=== PATIENT | male | born 1970 | race African-American/Black ===

== ENCOUNTER 2020-10-15 10:49 | Outpatient (REF) | payer OTHER, SELFPAY ==
[2020-10-15 12:00] LABS: MANUAL DIFF FLAG NO
[2020-10-15 12:07] LABS: Basophils Percent Auto 0.3 % (0-2); Eosinophils Absolute Auto 0.1 X10*3/uL (0.0-0.4); Eosinophils Percent Auto 3.8 % (0-4); Hematocrit 46.8 % (42-52); Hemoglobin 15.5 g/dl (14.0-18.0); Imm Gran Abs Auto 0.01 X10*3/uL (0.00-0.03); Imm Gran Pct Auto 0.3 % (0.0-0.4); Lymphocytes Absolute Auto 1.2 X10*3/uL (1.2-4.9); Lymphocytes Percent Auto 34.5 % (20-40); Mean Corpuscular HGB Conc 33.1 g/dl (31.0-36.0); Mean Corpuscular Hemoglobin 28.5 pg (27.0-33.0); Mean Platelet Volume 9.9 fL (9.4-12.4); Monocytes Absolute Auto 0.4 X10*3/uL (0.1-1.2); Monocytes Percent Auto 10.8 % (2-11); Neutrophils Absolute Auto 1.7 X10*3/uL (2.0-8.3); Neutrophils Percent Auto 50.3 % (45-73); Platelet Count 170 X10*3/uL (160-400); Red Blood Count 5.44 X10*6/uL (4.60-5.80); Red Cell Distribution Width 12.7 % (11.0-16.0); White Blood Count 3.4 X10*3/uL (4.8-10.8)
[2020-10-15 12:28] LABS: Glucose Urine UA NEG (NEG); Leukocyte Esterase Urine NEG (NEG); Nitrite Urine NEG (NEG); PH 5.5 (5.0-8.0); Specific Gravity - Urine >= 1.030 (1.005-1.025); Urine Blood NEG (NEG); Urine Ketones NEG (NEG); Urine Protein NEG (NEG-TRACE)
[2020-10-15 12:36] LABS: Alanine Aminotransferase 160 U/L (0-40); Albumin Level 4.8 g/dL (3.5-5.0); Alkaline Phosphatase 79 U/L (39-117); Anion Gap 14 (12-20); Aspartate Amino Transferase 72 U/L (5-37); Bilirubin Total 0.6 mg/dL (0.0-1.0); Blood Urea Nitrogen 16 mg/dL (9-16); Calcium 9.7 mg/dL (8.4-10.2); Carbon Dioxide 26 mmol/L (22-29); Chloride 107 mmol/L (96-108); Cholesterol 273 mg/dL; Estimated Glomerular Filt Rate > 60; Glucose Fasting 91 mg/dL (60-99); HDL Cholesterol 61 mg/dL; LDL Cholesterol Calculated 200 mg/dl; Sodium 143 mmol/L (135-145); Total Protein 8.3 g/dL (6.5-8.0); Triglycerides 64 mg/dL
[2020-10-15 12:40] LABS: Appearance Urine CLEAR; Color Urine YELLOW
[2020-10-15 12:53] LABS: Prostate Specific Antigen Scr 0.54 ng/mL (<0.05-4.0); TSH reflex Free T4 1.19 uIU/mL (0.32-4.0)
== END 2020-10-15 10:50 | disposition home or self-care (01) ==
LOC: HO.LAB 10:49
PROVIDERS: PCP Internal Medicine; Visit Provider Internal Medicine
DX: Z00.00 Encounter for general adult medical examination without abnormal findings (principal); Z12.5 Encounter for screening for malignant neoplasm of prostate; E66.9 Obesity, unspecified; R03.0 Elevated blood-pressure reading, without diagnosis of hypertension; R79.89 Other specified abnormal findings of blood chemistry
CPT/HCPCS: 36415; 80053; 80061; 81003; 84153; 84443; 85025

== ENCOUNTER → 2021-01-14 10:53 | Outpatient (BNVA) | payer OTHER, SELFPAY | PROVIDERS: PCP Internal Medicine; Referring Provider Internal Medicine; Visit Provider Physician Assistant | DX: Z12.11 Encounter for screening for malignant neoplasm of colon (principal) | CPT/HCPCS: 99202 ==

== ENCOUNTER 2021-01-22 11:59 | Day surgery (SDC) | payer OTHER, SELFPAY ==
[2021-01-22 12:10] VITALS: BMI 32.7
--- NOTE | 2021-01-22 13:14 | HO.ANESPROP2 ---
[facility] Active Problems Active Problems: All Active Problems (Updated 01/14/21 @ 11:09 by Angela Leigh PA-C) Anxiety (Acute) Colon cancer screening (Acute) Elevated LFTs (Acute) Obesity (BMI 30-39.9) (Acute) Elevated blood pressure reading (Acute) Past Medical History Medical History Anxiety Colon cancer screening Elevated blood pressure reading Elevated LFTs Obesity (BMI 30-39.9) Family History Family History Mother Hypertension Surgical History Surgical History History of trabeculectomy (~08/24/19) Hx of lumbar discectomy (~2000) Status post glaucoma surgery (~05/02/20) Social History Social History Household Members Other:: Alcohol intake: current Alcohol intake frequency: does not drink Patient Tobacco Use Status: Never used Tobacco Use of substances other than those prescribed or required for medical reasons: No Are you DNR?: No Advance Directives: No Advance Directives Information Provided: Yes Recently lost weight without trying: Yes How much weight loss: 24-33 pounds Nutrition Risks: No Nutritional Risk Current occupational status: retired Meds Allergies Allergy/AdvReac Type Severity Reaction Status Date / Time No Known Allergies Allergy Verified 01/14/21 11:01 Home Medications Medication Instructions Recorded Confirmed Last Taken Type acetazolamide 250 mg tablet mg PO 01/14/21 01/14/21 Unknown History dorzolamide 2 % eye drops drp OPHTHALMIC (EYE) 01/14/21 01/14/21 Unknown History methazolamide 25 mg tablet 50 mg PO BID 01/14/21 01/14/21 Unknown History prednisolone acetate 1 % eye drp OPHTHALMIC (EYE) 01/14/21 01/14/21 Unknown History drops,suspension Exam Exam Date and Time: January 22, 2021 1314 Height,Weight and Vital Signs: Height 5 ft 10 in Weight 103.419 kg Airway Mallampati Class: II TM Dist: >3cm Neck ROM: Full Heart: RRR Lungs: CTA Assessment and Plan Assessment Anesthesia Assessment: Anesthesia Plan Discussed and Chart Reviewed Final Anesthetic Review NPO: Yes ASA Class: II Final Preanesthetic Review: Meds/Allgs Chart Reviewed, Consent Obtained/Reviewed and Anes Risks/Benef Reviewed Patient Risk: Low Procedure Risk: Low Anesthetic Plan Anesthetic Plan: MAC: Disposition: Standard PACU
[2021-01-22] MEDS: Lactated Ringers 1,000 ML 50 ML IVCONT (13:27)
--- NOTE | 2021-01-22 15:07 | MHC.SHP ---
Pre-Procedural Eval Section A Date of Service: 01/22/21 The patient is an INPATIENT: No Changes since office visit: Yes Patient answered all questions; No Cold of Flu in the past 2 weeks, No New Medical Problems and No Changes in Medication The History & Physical has been completed within 30 days and I have reviewed it.: Yes Section B Chief Complaint: Screening Allergies: Allergies Allergy/AdvReac Type Severity Reaction Status Date / Time No Known Allergies Allergy Verified 01/14/21 11:01 Plan I have reviewed the history and physical and performed a pertinent physical examination on my patient. No changes have occurred unless specified.
--- NOTE | 2021-01-22 15:10 | PM.OP ---
Brief Operative Note Date of Service: 01/22/21 Pre-op diagnosis: Colon cancer screening Post-op diagnosis: other ( colon polyps, hemorrhoids) Procedure: COLONOSCOPY TILL CECUM WITH SNARE POLYPECTOMY Consent: Indications for the procedure and potential complications of bleeding, perforation, reaction to medications and missed diagnosis were discussed with the patient and informed consent was obtained. Instrument: Olympus PCF H 190 L variable stiffness pediatric colonoscope Monitoring: Vital signs and clinical assessment, intermittent blood pressure monitoring, continuous EKG monitoring, Pulse oximetry and Carbon Dioxide monitoring were done throughout the procedure. Colon withdrawl time was 18 minutes. Procedure: The patient was placed in the left lateral decubitis position and pre-procedure medications were administered. After a digital rectal examination of the ano-rectum, the video colonoscope was inserted into the rectum and advanced through the colon to the cecum. The colonoscope was slowly withdrawn in a retrograde panoramic fashion and the colon mucosa was carefully examined including a retroflexed view of the rectum. Findings and interventions are described below. Procedure Difficulty: Without difficulty Findings: Terminal Ileum: Not evaluated Cecum: Normal Ascending Colon: Normal Transverse Colon: Normal Descending Colon: Normal Sigmoid Colon: A 9-10 mm sessile polyp removed with a cold snare. Rectum: Normal Ano-rectum: Moderate internal hemorrhoids Colon preparation: Good Impression and Post Procedure Diagnosis: Colonoscopy Findings: One medium sized polyp removed Moderate hemorrhoids on retroflexed exam. Plan: Await pathology results Patient to schedule a FU appointment in the GI Clinic with JERRY Fernandez for evaluation of elevated LFTs Repeat Colonoscopy interval based on path results - in 3 years if polyp is adenomatous and 10 years if polyps are hyperplastic. Above findings were reviewed with the patient and colon polyps and handout was given in the discharge area Surgeon: Jaqui Dickson MD Anesthesia: MAC (Shaila Blackwell CRNA) Was an Manager Collection used for this Procedure?: Yes Manager Collection: Maddy Mcclellan Estimated blood loss (mL): 0 Pathology: other (a: sigmoid polyp) Condition: stable Disposition: PACU
--- NOTE | 2021-01-22 15:16 | P.OP_ITS ---
Operative Note Operative Note Date of Service: 01/22/21 Narrative: Pre-op diagnosis: Colon cancer screening Post-op diagnosis: other ( colon polyps, hemorrhoids) Procedure: COLONOSCOPY TILL CECUM WITH SNARE POLYPECTOMY Consent: Indications for the procedure and potential complications of bleeding, perforation, reaction to medications and missed diagnosis were discussed with the patient and informed consent was obtained. Instrument: Olympus PCF H 190 L variable stiffness pediatric colonoscope Monitoring: Vital signs and clinical assessment, intermittent blood pressure monitoring, continuous EKG monitoring, Pulse oximetry and Carbon Dioxide monitoring were done throughout the procedure. Colon withdrawl time was 18 minutes. Procedure: The patient was placed in the left lateral decubitis position and pre-procedure medications were administered. After a digital rectal examination of the ano-rectum, the video colonoscope was inserted into the rectum and advanced through the colon to the cecum. The colonoscope was slowly withdrawn in a retrograde panoramic fashion and the colon mucosa was carefully examined including a retroflexed view of the rectum. Findings and interventions are described below. Procedure Difficulty: Without difficulty Findings: Terminal Ileum: Not evaluated Cecum: Normal Ascending Colon: Normal Transverse Colon: Normal Descending Colon: Normal Sigmoid Colon: A 9-10 mm sessile polyp removed with a cold snare. Rectum: Normal Ano-rectum: Moderate internal hemorrhoids Colon preparation: Good Impression and Post Procedure Diagnosis: Colonoscopy Findings: One medium sized polyp removed Moderate hemorrhoids on retroflexed exam. Plan: Await pathology results Patient to schedule a FU appointment in the GI Clinic with JERRY Fernandez for evaluation of elevated LFTs Repeat Colonoscopy interval based on path results - in 3 years if polyp is adenomatous and 10 years if polyps are hyperplastic. Above findings were reviewed with the patient and colon polyps and handout was given in the discharge area Surgeon: Jaqui Dickson MD Anesthesia: MAC (Shaila Blackwell CRNA) Was an Logistics Loss Prevention Manager used for this Procedure?: Yes Logistics Loss Prevention Manager: Maddy Mcclellan Estimated blood loss (mL): 0 Pathology: other (a: sigmoid polyp) Condition: stable Disposition: PACU
[2021-01-22 15:52] VITALS: BP 108/73; PULSE 85; RESP 14; TEMP 36.2; O2SAT 94
[2021-01-22 16:07] VITALS: BP 112/72; PULSE 69; RESP 16; O2SAT 94
[2021-01-22 16:30] VITALS: BP 124/90; PULSE 75; RESP 16; TEMP 36; O2SAT 98
== END 2021-01-22 16:36 | disposition home or self-care (01) ==
PROVIDERS: PCP Internal Medicine; Visit Provider Internal Medicine Gastroenterology
PROC: 0DJD8ZZ Inspection of Lower Intestinal Tract, Via Natural or Artificial Opening Endoscopic (ICD-10-PCS; CPT 45378; principal; 2021-01-22 13:10)
DX: Z12.11 Encounter for screening for malignant neoplasm of colon (principal); K63.5 Polyp of colon; K64.8 Other hemorrhoids; R03.0 Elevated blood-pressure reading, without diagnosis of hypertension; R74.8 Abnormal levels of other serum enzymes; F41.9 Anxiety disorder, unspecified; E66.9 Obesity, unspecified; Z79.899 Other long term (current) drug therapy
CPT/HCPCS: 45385; 88305

== ENCOUNTER 2022-06-03 09:37 | Outpatient (REF) | payer MEDICARE, SELFPAY ==
[2022-06-03 10:30] LABS: COVID-19 Test Negative (Negative); IDNOW Serial# 9DB6401D
== END 2022-06-03 09:38 | disposition home or self-care (01) ==
LOC: HO.LAB 09:37
PROVIDERS: Visit Provider Internal Medicine
DX: Z20.822 Contact with and (suspected) exposure to COVID-19 (principal)
CPT/HCPCS: 87635; C9803

== ENCOUNTER 2022-11-25 10:35 | Outpatient (AMB) | payer MEDICARE, SELFPAY ==
--- NOTE | 2022-11-25 10:42 | A.OFFPC_ITS ---
Vital Signs 11/25/22 10:43 Height 5 ft 10 in Weight 240 lb 6 oz BMI 34.5 BP 138/80 Blood Pressure Location Lt brachial Position Sitting Pulse 75 Pulse Source Pulse Oximeter Pulse Oximetry (%) 98 Oxygen Delivery Method Room Air Intake Visit Reasons: hyperlipidemia, elevated LFTs Intake Note: Patient is here to follow up on hyerlipidemia and elevated LFT's. 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: No Accompanied by: Self / Same As Patient Allergies No Known Allergies Allergy (Verified 06/10/23 13:10) Medication List - Last Reconciled 11/25/22 by Geovanny Suazo MD acetazolamide 250 mg PO BID dorzolamide 2% 1 drp ophthalmic (eye) TID doxepin 25 mg PO BEDTIME methazolamide 50 mg PO BID prednisolone acetate 1% 2 drps ophthalmic (eye) QID Tobacco use date assessed: 11/25/22 HPI hyperlipidemia, elevated LFTs HPI0 Details Patient comes in today for his follow up visit States that he feels okay Denies any headaches or dizziness Denies any chest pains, no SOB No nausea/vomiting, no abdominal pain No change in bowel habits noted He was not able to get his previously ordered labs done yet but states that he has not yet eaten anything this morning and can get to the lab after his visit today to get his labs done [facility] Medical History (Updated 06/10/23 @ 19:09 by Geovanny Suazo MD) Vitamin D deficiency Pure hypercholesterolemia Anxiety Colon cancer screening Elevated LFTs Obesity (BMI 30-39.9) Elevated blood pressure reading Surgical History (Updated 06/10/23 @ 13:17 by Geovanny Suazo MD) Hx of colonoscopy (~01/22/21) Hx of lumbar discectomy (~2000) Status post glaucoma surgery (~05/02/20) History of trabeculectomy (~08/24/19) Family History Mother Hypertension Social History Household Members Other:: Housing: Apartment Alcohol intake: current Alcohol intake frequency: holidays/special occasions only Patient Tobacco Use Status: Never used Tobacco e-Cigarette/Vaping Use: Never Used Second Hand Smoke Exposure: Yes service: No Current occupational status: retired and disabled Cognitive needs: No Hearing needs: No Vision needs: No Questionnaire PHQ-9 Over the last 2 weeks, how often have you been bothered by any of the following problems? 1. Little interest or pleasure in doing things: not at all 2. Feeling down, depressed, or hopeless: not at all 3. Trouble falling or staying asleep, or sleeping too much: not at all 4. Feeling tired or having little energy: not at all 5. Poor appetite or overeating: not at all 6. Feeling bad about yourself - or that you are a failure or have let yourself or your family down: not at all 7. Trouble concentrating on things, such as reading the newspaper or watching television: not at all 8. Moving or speaking so slowly that other people could have noticed. Or the opposite - being so fidgety or restless that you have been moving around a lot more than usual: not at all 9. Thoughts that you would be better off or of hurting yourself in some way: not at all Total score: 0 Depression Screening Interpretation: Negative [id number] - PHQ-9 Billing: Yes Source: Developed by Drs. Mio Cochran, Christelle Frank, Fransisco Spicer and colleagues, with an educational stephanie from [employer] Thrive Questionnaire Declines Thrive assessment: No Date Thrive assessed: 11/25/22 I am a: Patient What is your living situation today?: I have a steady place to live Within the past 12 months, did the food you bought not last and you didn't have the money to get more?: Never true Within the past 12 months, did you worry whether your food would run out before you got money to buy more?: Never true Do you have trouble paying for medicines?: No Do you have trouble getting transportation to medical appointments?: No Do you have trouble paying your heating and electricity bill?: No Do you have trouble taking care of your child, family member or friend?: No Do you have trouble with day-to-day activities such as bathing, preparing meals, shopping, managing finances, etc.?: No Are you currently unemployed and looking for a job?: No Are you interested in more education?: No Currently or been in a relationship where the following occur: no concerns reported AUDIT C Alcohol Use Questionnaire (AUDIT-C) 1. How often do you have a drink containing alcohol?: Monthly or less 2. How many drinks containing alcohol do you have on a typical day when you are drinking?: 1 or 2 3. How often do you have six or more drinks on one occasion?: Never Total Score: 1 Score Reviewed/Action Taken: Yes JODIE-7 AMB Questionnaire JODIE-7 Date JODIE - 7 assessed: 11/25/22 Feeling nervous, anxious, or on edge: 0 = Not at all Not being able to stop or control worryin = Not at all Worrying too much about different things: 0 = Not at all Trouble relaxin = Not at all Being so restless that it is hard to sit still: 0 = Not at all Becoming easily annoyed or irritable: 0 = Not at all Feeling afraid as if something awful might happen: 0 = Not at all Total JODIE-7 score (0-4 normal; 5-9 mild; 10-14 moderate; 15-21 severe): 0 Source: Developed by Drs. Mio Cochran, Christelle Frank, Fransisco Spicer and colleagues, with an educational stephanie from [employer] Review of Systems Const Denies chills, Denies fatigue, Denies fever(s) and Denies headache(s) Eyes Details: Patient is legally blind Reports blurry vision ENT Denies dysphagia, Denies dizziness, Denies otalgia, Denies headache(s), Denies neck pain, Denies odynophagia and Denies sore throat Card Denies chest pain, Denies palpitations and Denies dyspnea Resp Denies cough and Denies dyspnea GI Denies abdominal pain, Denies constipation, Denies dysphagia, Denies heartburn, Denies diarrhea, Denies nausea, Denies odynophagia and Denies vomiting Denies dysuria, Denies nocturia and Denies urinary frequency Musc Denies back pain and Denies neck pain Skin/Breast Denies rash Neuro Denies dizziness and Denies headache(s) Endo Denies fatigue and Denies palpitations Physical exam (Primary Care) Vital Signs: Last Vital Signs Pulse 75 11/25/22 10:43 BP 138/80 11/25/22 10:43 Pulse Ox 98 11/25/22 10:43 Oxygen Delivery Method Room Air 11/25/22 10:43 BMI result Body Mass Index 34.5 Tobacco/Smoking Status: Tobacco use Status Tobacco use date assessed 11/25/22 11/25/22 10:48 Patient Tobacco Use Status Never used Tobacco 11/25/22 10:48 e-Cigarette/Vaping Use Never Used 11/25/22 10:48 PHQ-9: PHQ-9 Score PHQ-9: Total score 0 11/25/22 11:03 Depression Screening Interpretation: Negative Thrive Assessment: Date of Thrive Assessment Date Thrive assessed 11/25/22 11/25/22 10:48 Currently or been in a relationship where the following occur: no concerns reported Const General: no acute distress and alert HENMT Ears: TM's normal bilaterally and EAC's normal Throat: Yes posterior oropharynx normal and Yes tonsils normal (no TP congestion) Neck Neck: Yes no lymphadenopathy and Yes supple Resp Auscultation: clear to auscultation bilaterally, no rales and no wheezes Cardio Rate: regular rate Rhythm: regular rhythm Heart sounds: no murmurs GI Palpation (GI): Soft to palpation, nontender and No hepatosplenomegaly present Skin General skin exam: no rashes or lesions noted Extrem General: Yes no clubbing, cyanosis or edema Assessment and Plan Assessment & Plan (1) Pure hypercholesterolemia: Code(s): E78.00 - Pure hypercholesterolemia, unspecified Plan: Reinforced low cholesterol diet Will have patient recheck his fasting lipids WENDY for follow up Will also have him recheck his labs and fasting lipids again in 6 months for follow up - is instructed to try getting these done BEFORE he comes in for his next appointment (2) Elevated blood pressure reading: Code(s): R03.0 - Elevated blood-pressure reading, without diagnosis of hypertension Plan: Patient is advised that his blood pressure reading today is slightly higher than normal again Reinforced low sodium diet - goal is systolic BP of 120 mm or less Patient is instructed to continue monitoring his blood pressure regularly (3) Elevated LFTs: Code(s): R79.89 - Other specified abnormal findings of blood chemistry Plan: Advised that this was most likely related to his weight and should improve with weight loss Will recheck his LFTs for follow up May need further work ups, including abdominal US, if his LFTs remain significantly elevated compared to his previous numbers (4) Glaucoma: Code(s): H40.9 - Unspecified glaucoma Qualifiers: Glaucoma type: unspecified Laterality: bilateral Qualified Code(s): H40.9 - Unspecified glaucoma Plan: Continue Dorzolamide 2% eye drops 1 drop into each eye BID, Combigan 0.2-0.5% 1 drop into each eye BID, Rocklatan 0.02-0.005% 1 drop into each eye QD, Pilocarpine HCl 1% 1 drop into the right eye QID and Prednisolone acetate 1% 2 drops into the left eye QD Used to take Methazolamide 50 mg BID and Acetazolamide 250 mg BID but these appear to have been discontinued by ophthalmology recently Follow up with ophthalmology at the [facility] in [place] as scheduled (5) Anxiety: Code(s): F41.9 - Anxiety disorder, unspecified Plan: Continue Doxepin 25 mg Q HS PRN (6) Obesity (BMI 30-39.9): Code(s): E66.9 - Obesity, unspecified Plan: Reinforced diet/exercise as tolerated/lose weight Plan To return in 6 months for his next annual physical examination Coding Level of Care Code Est Pt Level 4 (00114) Diagnoses Pure hypercholesterolemia E78.00 Elevated blood pressure reading R03.0 Elevated LFTs R79.89 Glaucoma of both eyes, unspecified glaucoma type H40.9 Glaucoma type: unspecified Laterality: bilateral Anxiety F41.9 Obesity (BMI 30-39.9) E66.9
[2022-11-25 10:43] VITALS: BP 138/80; PULSE 75; O2SAT 98; BMI 34.5
== END 2022-11-25 11:15 | disposition home or self-care (01) ==
LOC: HO.HMGH 10:35
PROVIDERS: PCP Internal Medicine; Visit Provider Internal Medicine
DX: E78.00 Pure hypercholesterolemia, unspecified (principal); R03.0 Elevated blood-pressure reading, without diagnosis of hypertension; R79.89 Other specified abnormal findings of blood chemistry; H40.9 Unspecified glaucoma; F41.9 Anxiety disorder, unspecified; E66.9 Obesity, unspecified
CPT/HCPCS: 99214

== ENCOUNTER 2022-11-25 11:20 | Outpatient (REF) | payer MEDICARE, SELFPAY ==
[2022-11-25 11:57] LABS: MANUAL DIFF FLAG NO
[2022-11-25 12:17] LABS: Basophils Percent Auto 0.6 % (0-2); Eosinophils Absolute Auto 0.3 X10*3/uL (0.0-0.4); Eosinophils Percent Auto 8.1 % (0-4); Hematocrit 44.9 % (42.0-52.0); Imm Gran Abs Auto 0.01 X10*3/uL (0.00-0.03); Imm Gran Pct Auto 0.3 % (0.0-0.4); Lymphocytes Absolute Auto 1.2 X10*3/uL (1.2-4.9); Lymphocytes Percent Auto 32.4 % (20-40); Mean Corpuscular HGB Conc 33.4 g/dl (31.0-36.0); Mean Corpuscular Hemoglobin 29.2 pg (27.0-33.0); Mean Corpuscular Volume 87.5 fL (80.0-98.0); Mean Platelet Volume 10.2 fL (9.4-12.4); Monocytes Absolute Auto 0.3 X10*3/uL (0.1-1.2); Monocytes Percent Auto 9.2 % (2-11); Neutrophils Absolute Auto 1.8 x10*3/uL (2.0-8.3); Neutrophils Percent Auto 49.4 % (45-73); Platelet Count 170 X10*3/uL (160-400); Red Blood Count 5.13 X10*6/uL (4.60-5.80); Red Cell Distribution Width 12.5 % (11.0-16.0); White Blood Count 3.6 X10*3/uL (4.8-10.8)
[2022-11-25 12:54] LABS: Appearance Urine Clear; Color Urine Dark Yellow; Glucose Urine UA Negative (Negative); Leukocyte Esterase Urine Negative (Negative); Nitrite Urine Negative (Negative); Specific Gravity - Urine >= 1.030 (1.005-1.025); UMIC TRIGGER UACC YES; Urine Blood Negative (Negative); Urine Ketones 15 mg/dL (Negative); Urine Protein 30 (1+) mg/dL (Neg-Trace)
[2022-11-25 12:59] LABS: Alanine Aminotransferase 53 U/L (0-40); Albumin Level 4.2 g/dL (3.5-5.0); Alkaline Phosphatase 66 U/L (39-117); Anion Gap 11 (12-20); Aspartate Amino Transferase 28 U/L (5-37); Bilirubin Total 0.8 mg/dL (0.0-1.0); Blood Urea Nitrogen 17 mg/dL (9-16); Calcium 9.4 mg/dL (8.4-10.2); Carbon Dioxide 26 mmol/L (22-29); Chloride 108 mmol/L (96-108); Cholesterol 225 mg/dL; Estimated Glomerular Filt Rate > 60; Glucose Fasting 86 mg/dL (60-99); HDL Cholesterol 46 mg/dL; LDL Cholesterol Calculated 166 mg/dl; Potassium 4.1 mmol/L (3.3-5.1); Prostate Specific Antigen Scr 0.56 ng/mL (<0.05-4.0); Sodium 141 mmol/L (135-145); TSH reflex Free T4 1.25 uIU/mL (0.32-4.0); Total Protein 7.2 g/dL (6.5-8.0); Triglycerides 67 mg/dL
[2022-11-25 13:11] LABS: Bacteria Urine None Seen (None Seen); RBC Urine 0-2 /HPF (0-2); WBC Urine 0-5 /HPF (0-5)
== END 2022-11-25 11:21 | disposition home or self-care (01) ==
LOC: HO.LAB 11:20
PROVIDERS: PCP Internal Medicine; Visit Provider Internal Medicine
DX: Z00.00 Encounter for general adult medical examination without abnormal findings (principal); Z12.5 Encounter for screening for malignant neoplasm of prostate; E78.00 Pure hypercholesterolemia, unspecified; E55.9 Vitamin D deficiency, unspecified; R79.89 Other specified abnormal findings of blood chemistry
CPT/HCPCS: 36415; 80053; 80061; 81001; 82306; 84153; 84443; 85025

== ENCOUNTER 2023-06-10 12:43 | Outpatient (AMB) | payer MEDICARE, SELFPAY ==
[2023-06-10 12:57] VITALS: BP 120/78; PULSE 68; O2SAT 99; BMI 35.2
--- NOTE | 2023-06-10 12:57 | A.OFFPC_ITS ---
Vital Signs 06/10/23 12:57 Height 5 ft 10 in Weight 245 lb 2 oz BMI 35.2 BP 120/78 Blood Pressure Location Lt brachial Position Sitting Pulse 68 Pulse Source Pulse Oximeter Pulse Oximetry (%) 99 Oxygen Delivery Method Room Air Intake Visit Reasons: Annual Exam Announcer Required: No Accompanied by: Self / Same As Patient Allergies No Known Allergies Allergy (Verified 06/10/23 13:10) Medication List - Last Reconciled 06/10/23 by Geovanny Suazo MD brimonidine-timolol 0.2-0.5 % (Combigan) 1 drp ophthalmic (eye) BID cholecalciferol (vitamin D3) 50 mcg PO DAILY 90 days dorzolamide 2% 1 drp ophthalmic (eye) BID doxepin 25 mg PO BEDTIME netarsudil-latanoprost 0.02-0.005 % (Rocklatan) 1 drp ophthalmic (eye) DAILY pilocarpine HCl 1% 1 drp ophthalmic (eye) QID prednisolone acetate 1% 2 drps ophthalmic (eye) .QD Tobacco use date assessed: 06/10/23 Dental Screening Dental Screen Date: 06/10/23 Did you have a dental visit in the last 12 months?: Yes Did you have a dental problem in the last 6 months where you did not have access to dental care?: No Was dental information given to patient?: Patient has dentist HPI Annual Exam HPI Details Patient comes in today for his annual physical examination States that he feels okay He denies any headaches or dizziness Denies any chest pains, no SOB No nausea/vomiting, no abdominal pain No change in bowel habits noted Denies any acute urinary symptoms Had his screening colonoscopy done with Dr. Dickson a couple of years ago on 01/22/2021 - recommend repeat colonoscopy in 10 years States that he was able to lose a lot of weight initially and was able to get himself down to a weight of around 209 pounds but states that he went down to [place] a few months ago to visit family there and afterwards, his weight started going back up and he is now unfortunately back to close to his previous weight but he has now decided to try to go back to what he was doing at the beginning of the year and start losing weight and eating healthy again [facility] Medical History (Updated 06/10/23 @ 19:09 by Geovanny Suazo MD) Vitamin D deficiency Pure hypercholesterolemia Anxiety Colon cancer screening Elevated LFTs Obesity (BMI 30-39.9) Elevated blood pressure reading Surgical History (Updated 06/10/23 @ 13:17 by Geovanny Suazo MD) Hx of colonoscopy (~01/22/21) Hx of lumbar discectomy (~2000) Status post glaucoma surgery (~05/02/20) History of trabeculectomy (~08/24/19) Family History Mother Hypertension Social History Household Members Other:: Housing: Apartment Alcohol intake: current Alcohol intake frequency: holidays/special occasions only Patient Tobacco Use Status: Never used Tobacco e-Cigarette/Vaping Use: Never Used Second Hand Smoke Exposure: Yes service: No Current occupational status: retired and disabled Cognitive needs: No Hearing needs: No Vision needs: No Questionnaire PHQ-9 Over the last 2 weeks, how often have you been bothered by any of the following problems? 1. Little interest or pleasure in doing things: not at all 2. Feeling down, depressed, or hopeless: not at all 3. Trouble falling or staying asleep, or sleeping too much: not at all 4. Feeling tired or having little energy: not at all 5. Poor appetite or overeating: not at all 6. Feeling bad about yourself - or that you are a failure or have let yourself or your family down: not at all 7. Trouble concentrating on things, such as reading the newspaper or watching television: not at all 8. Moving or speaking so slowly that other people could have noticed. Or the opposite - being so fidgety or restless that you have been moving around a lot more than usual: not at all 9. Thoughts that you would be better off or of hurting yourself in some way: not at all Total score: 0 Depression Screening Interpretation: Negative Depression Screening Done: Yes 62514 - PHQ-9 Billing: Yes Source: Developed by Drs. Mio Cochran, Christelle Frank, Fransisco Spicer and colleagues, with an educational stephanie from [employer]. Thrive Questionnaire Date Thrive assessed: 06/10/23 I am a: Patient What is your living situation today?: I have a steady place to live Within the past 12 months, did the food you bought not last and you didn't have the money to get more?: Never true Within the past 12 months, did you worry whether your food would run out before you got money to buy more?: Never true Do you have trouble paying for medicines?: No Do you have trouble getting transportation to medical appointments?: No Do you have trouble paying your heating and electricity bill?: No Do you have trouble taking care of your child, family member or friend?: No Do you have trouble with day-to-day activities such as bathing, preparing meals, shopping, managing finances, etc.?: No Are you currently unemployed and looking for a job?: No Are you interested in more education?: No Please select the resources that you would like help with: None Currently or been in a relationship where the following occur: no concerns reported AUDIT C Alcohol Use Questionnaire (AUDIT-C) 1. How often do you have a drink containing alcohol?: Monthly or less 2. How many drinks containing alcohol do you have on a typical day when you are drinking?: 1 or 2 3. How often do you have six or more drinks on one occasion?: Never Total Score: 1 Score Reviewed/Action Taken: Yes JODIE-7 AMB Questionnaire JODIE-7 Date JODIE - 7 assessed: 06/10/23 Feeling nervous, anxious, or on edge: 0 = Not at all Not being able to stop or control worryin = Not at all Worrying too much about different things: 0 = Not at all Trouble relaxin = Not at all Being so restless that it is hard to sit still: 0 = Not at all Becoming easily annoyed or irritable: 0 = Not at all Feeling afraid as if something awful might happen: 0 = Not at all Total JODIE-7 score (0-4 normal; 5-9 mild; 10-14 moderate; 15-21 severe): 0 Source: Developed by Drs. Mio Cochran, Christelle Frank, Fransisco Spicer and colleagues, with an educational stephanie from [employer]. Review of Systems Const Denies chills, Denies fatigue, Denies fever(s), Denies headache(s), Denies malaise and Denies weakness Eyes Denies blurry vision, Denies change in vision, Denies irritation and Denies itchy eyes ENT Denies dysphagia, Denies dizziness, Denies otalgia, Denies headache(s), Denies nasal congestion, Denies neck pain, Denies odynophagia and Denies sore throat Card Denies chest pain, Denies rapid heart rate, Denies irregular heart rhythm, Denies palpitations and Denies dyspnea Resp Denies chest congestion, Denies cough, Denies dyspnea and Denies wheezing GI Denies abdominal pain, Denies bloating, Denies constipation, Denies dysphagia, Denies heartburn, Denies diarrhea, Denies nausea, Denies odynophagia and Denies vomiting Denies hematuria, Denies difficulty urinating, Denies dysuria, Denies urinary frequency and Denies urinary urgency Musc Denies back pain, Denies arthralgias, Denies joint swelling, Denies muscle weakness and Denies neck pain Skin/Breast Denies change in pigmentation, Denies lesions, Denies rash and Denies unusual bruising Neuro Denies dizziness, Denies headache(s), Denies paresthesias and Denies weakness Endo Denies fatigue and Denies palpitations Aller/Immun Denies itchy eyes and Denies wheezing Physical exam (Primary Care) Vital Signs: Last Vital Signs Pulse 68 06/10/23 12:57 BP 120/78 06/10/23 12:57 Pulse Ox 99 06/10/23 12:57 Oxygen Delivery Method Room Air 06/10/23 12:57 BMI result Body Mass Index 35.2 Tobacco/Smoking Status: Tobacco use Status Tobacco use date assessed 06/10/23 06/10/23 13:05 Patient Tobacco Use Status Never used Tobacco 06/10/23 13:05 e-Cigarette/Vaping Use Never Used 06/10/23 13:05 PHQ-9: PHQ-9 Score PHQ-9: Total score 0 06/10/23 13:19 Depression Screening Interpretation: Negative Thrive Assessment: Date of Thrive Assessment Date Thrive assessed 06/10/23 06/10/23 13:05 Currently or been in a relationship where the following occur: no concerns reported Const General: no acute distress, alert and awake Orientation/consciousness: patient oriented x3 HENMT Head: Yes normocephalic and Yes atraumatic Ears: external ears normal, TM's normal bilaterally and EAC's normal General nose exam: No nasal discharge present Face and sinus: Yes normal facial exam and Yes sinuses nontender Teeth and gingiva: dentition normal Throat: Yes posterior oropharynx normal and Yes tonsils normal (no TP congestion) Eyes Eyelids: Yes eyelids normal Conjunctivae: conjunctivae normal Pupils: Equal, round and reactive pupils present EOM: EOMs intact bilaterally Neck Neck: Yes no lymphadenopathy and Yes supple Thyroid: Thyroid normal Resp Auscultation: clear to auscultation bilaterally, no rales and no wheezes Cardio Rate: regular rate Rhythm: regular rhythm Heart sounds: no murmurs GI Palpation (GI): Soft to palpation, nontender and No hepatosplenomegaly present Auscultation: normal bowel sounds General: Yes no CVA tenderness Back/Spine/Pelvis Back: no CVA tenderness Thoracic/Lumbar Spine: thoracic and lumbar spine normal to inspection Skin Lesions: no lesions Rashes: no rashes Neuro General: patient oriented x3, moves all extremities, no focal motor deficits and CN's II-XI intact bilaterally Cranial nerves: Yes Equal, round and reactive pupils present Cognition (Neuro): normal cognition Gait exam (Neuro): Normal gait present Extrem General: Yes no clubbing, cyanosis or edema Results Reviewed Results Reviewed: Laboratory Tests 11/25/22 11/25/22 11/25/22 11:48 11:56 11:56 WBC 3.6 L Hgb 15.0 Hct 44.9 Plt Count 170 Sodium 141 Potassium 4.1 Creatinine 0.98 Estimated GFR > 60 Fasting Glucose 86 Calcium 9.4 AST 28 ALT 53 H Triglycerides 67 Cholesterol 225 LDL Cholesterol, Calc 166 HDL Cholesterol 46 PSA Screen 0.56 25-OH Vitamin D Total 13.0 TSH 1.25 Urine pH 6.0 Ur Specific [place] >= 1.030 H Urine Protein 30 (1+) H Urine Glucose (UA) Negative Assessment and Plan Assessment & Plan (1) Annual physical exam: Code(s): Z00.00 - Encounter for general adult medical examination without abnormal findings Plan: Results of his labs done back in November 2022 reviewed and discussed with patient He is up-to-date with his cancer screening - had colonoscopy done on 01/22/2021 and is recommended to repeat his colonoscopy in 10 years (2030) (2) Pure hypercholesterolemia: Code(s): E78.00 - Pure hypercholesterolemia, unspecified Plan: Reinforced low cholesterol diet Will recheck his labs and fasting lipids WENDY for follow up - advised that his total and LDL cholesterol done back in November 2022 have improved from a couple of years ago (2020) but are still elevated and with his recent weight gain, I am concerned that his numbers have gone back up as well (3) Elevated LFTs: Code(s): R79.89 - Other specified abnormal findings of blood chemistry Plan: Advised that his LFTs were improving on his recent labs in November 2022 and that they were most likely related to his weight and should continue to improve with weight loss Will recheck his LFTs for follow up, especially since he has gained most of the weight that he lost earlier this year back recently (4) Vitamin D deficiency: Code(s): E55.9 - Vitamin D deficiency, unspecified Plan: He is advised that his Vitamin D level was very low on his previous labs in November 2022 Will start him on Vitamin D3 2000 units QD (5) Glaucoma: Code(s): H40.9 - Unspecified glaucoma Qualifiers: Glaucoma type: unspecified Laterality: bilateral Qualified Code(s): H40.9 - Unspecified glaucoma Plan: Continue Dorzolamide 2% eye drops 1 drop into each eye BID, Combigan 0.2-0.5% 1 drop into each eye BID, Rocklatan 0.02-0.005% 1 drop into each eye QD, Pilocarpine HCl 1% 1 drop into the right eye QID and Prednisolone acetate 1% 2 drops into the left eye QD Used to take Methazolamide 50 mg BID and Acetazolamide 250 mg BID but these have been discontinued by ophthalmology Follow up with ophthalmology at the [facility] in [place] as scheduled (6) Anxiety: Code(s): F41.9 - Anxiety disorder, unspecified Plan: Continue Doxepin 25 mg Q HS PRN (7) Obesity (BMI 30-39.9): Code(s): E66.9 - Obesity, unspecified Plan: Reinforced diet/exercise as tolerated/lose weight Plan Follow up in 6 months Orders: Orders Complete Blood Count Auto Diff Today E78.00 - Pure hypercholesterolemia, unspecified, R79.89 - Other specified abnormal findings of blood chemistry, Z00.00 - Encounter for general adult medical examination without abnormal findings UA CC w/rflx Micro + Cult Today R30.0 - Dysuria, Z00.00 - Encounter for general adult medical examination without abnormal findings Comprehensive [place]. Panel Fast Today E78.00 - Pure hypercholesterolemia, unspecified, R79.89 - Other specified abnormal findings of blood chemistry, Z00.00 - Encounter for general adult medical examination without abnormal findings Lipid Panel Today E78.00 - Pure hypercholesterolemia, unspecified, R79.89 - Other specified abnormal findings of blood chemistry, Z00.00 - Encounter for general adult medical examination without abnormal findings Medications: New cholecalciferol (vitamin D3) 50 mcg PO DAILY 90 caps 3RF 90 days E55.9 - Vitamin D deficiency, unspecified Coding Level of Care Code Est Pt Prev Care 40-64y(31148) Diagnoses Annual physical exam Z00.00 Pure hypercholesterolemia E78.00 Elevated LFTs R79.89 Vitamin D deficiency E55.9 Glaucoma of both eyes, unspecified glaucoma type H40.9 Glaucoma type: unspecified Laterality: bilateral Anxiety F41.9 Obesity (BMI 30-39.9) E66.9
== END 2023-06-10 13:59 | disposition home or self-care (01) ==
PROVIDERS: Visit Provider Internal Medicine
DX: Z00.00 Encounter for general adult medical examination without abnormal findings (principal); E78.00 Pure hypercholesterolemia, unspecified; R79.89 Other specified abnormal findings of blood chemistry; Z68.35 Body mass index [BMI] 35.0-35.9, adult; E66.9 Obesity, unspecified; E55.9 Vitamin D deficiency, unspecified; H40.9 Unspecified glaucoma; F41.9 Anxiety disorder, unspecified
CPT/HCPCS: 99396

== ENCOUNTER 2023-06-10 14:08 | Outpatient (REF) | payer MEDICARE, SELFPAY ==
[2023-06-10 14:21] LABS: MANUAL DIFF FLAG NO
[2023-06-10 14:35] LABS: Basophils Percent Auto 0.5 % (0-2); Eosinophils Absolute Auto 0.3 X10*3/uL (0.0-0.4); Eosinophils Percent Auto 6.8 % (0-4); Hematocrit 44.3 % (42.0-52.0); Imm Gran Abs Auto 0.01 X10*3/uL (0.00-0.03); Imm Gran Pct Auto 0.2 % (0.0-0.4); Lymphocytes Absolute Auto 1.4 X10*3/uL (1.2-4.9); Lymphocytes Percent Auto 33.3 % (20-40); Mean Corpuscular HGB Conc 33.9 g/dl (31.0-36.0); Mean Corpuscular Volume 85.7 fL (80.0-98.0); Mean Platelet Volume 9.7 fL (9.4-12.4); Monocytes Absolute Auto 0.4 X10*3/uL (0.1-1.2); Monocytes Percent Auto 9.2 % (2-11); Neutrophils Absolute Auto 2.1 x10*3/uL (2.0-8.3); Platelet Count 196 X10*3/uL (160-400); Red Blood Count 5.17 X10*6/uL (4.60-5.80); Red Cell Distribution Width 12.7 % (11.0-16.0); White Blood Count 4.1 X10*3/uL (4.8-10.8)
[2023-06-10 14:40] LABS: Appearance Urine Clear; Color Urine Yellow; Glucose Urine UA Negative (Negative); Leukocyte Esterase Urine Negative (Negative); Nitrite Urine Negative (Negative); Specific Gravity - Urine >= 1.030 (1.005-1.025); Urine Blood Negative (Negative); Urine Ketones Trace mg/dL (Negative); Urine Protein Negative (Neg-Trace)
[2023-06-10 15:10] LABS: Alanine Aminotransferase 104 U/L (0-40); Albumin Level 4.5 g/dL (3.5-5.0); Alkaline Phosphatase 71 U/L (39-117); Anion Gap 9 (12-20); Aspartate Amino Transferase 55 U/L (5-37); Bilirubin Total 0.5 mg/dL (0.0-1.0); Blood Urea Nitrogen 19 mg/dL (9-16); Calcium 9.3 mg/dL (8.4-10.2); Carbon Dioxide 27 mmol/L (22-29); Chloride 108 mmol/L (96-108); Cholesterol 245 mg/dL (<200); Estimated Glomerular Filt Rate > 60; Glucose Fasting 86 mg/dL (60-99); HDL Cholesterol 57 mg/dL (>40); LDL Cholesterol Calculated 173 mg/dL (<100); Sodium 140 mmol/L (135-145); Total Protein 8.1 g/dL (6.5-8.0); Triglycerides 79 mg/dL (<150)
== END 2023-06-10 14:09 | disposition home or self-care (01) ==
LOC: HO.LAB 14:08
PROVIDERS: PCP Internal Medicine; Visit Provider Internal Medicine
DX: Z00.00 Encounter for general adult medical examination without abnormal findings (principal); R30.0 Dysuria; E78.00 Pure hypercholesterolemia, unspecified; R79.89 Other specified abnormal findings of blood chemistry
CPT/HCPCS: 36415; 80053; 80061; 81003; 85025

== ENCOUNTER 2023-12-09 09:42 | Outpatient (AMB) | payer MEDICARE, MEDICAID, SELFPAY ==
[2023-12-09 09:45] VITALS: BP 126/80; PULSE 55; O2SAT 96; BMI 33.6
--- NOTE | 2023-12-09 09:45 | A.OFFPC_ITS ---
Vital Signs 12/09/23 09:45 Height 5 ft 10 in Weight 234 lb BMI 33.6 BP 126/80 Blood Pressure Location Lt brachial Position Sitting Pulse 55 Pulse Source Pulse Oximeter Pulse Oximetry (%) 96 Oxygen Delivery Method Room Air Intake Visit Reasons: hyperlipidemia, glaucoma Intake Note: Patient is here to follow up on hyperlipidemia, glaucoma Case Resolution Specialist Required: No Allergies No Known Allergies Allergy (Verified 12/09/23 10:14) Medication List - Last Reconciled 12/09/23 by Geovanny Suazo MD brimonidine-timolol 0.2-0.5 % (Combigan) 1 drp ophthalmic (eye) BID cholecalciferol (vitamin D3) 50 mcg PO DAILY 90 days dorzolamide 2% 1 drp ophthalmic (eye) BID doxepin 25 mg PO BEDTIME netarsudil-latanoprost 0.02-0.005 % (Rocklatan) 1 drp ophthalmic (eye) DAILY pilocarpine HCl 1% 1 drp ophthalmic (eye) QID prednisolone acetate 1% 2 drps ophthalmic (eye) .QD Tobacco use date assessed: 12/09/23 Dental Screening Dental Screen Date: 12/09/23 Did you have a dental visit in the last 12 months?: Yes Did you have a dental problem in the last 6 months where you did not have access to dental care?: No Was dental information given to patient?: Patient has dentist HPI hyperlipidemia, glaucoma HPI Details Patient comes in today for his follow up visit States that he currently feels okay States that he switched over to a vegetarian diet in July 2023 and has been a strict vegetarian since He has also been able to lose some weight since his last visit here in May 2023 He denies any headaches or dizziness Denies any chest pains, no SOB No nausea/vomiting, no abdominal pain No change in bowel habits noted PFSH Medical History Vitamin D deficiency Pure hypercholesterolemia Anxiety Colon cancer screening Elevated LFTs Obesity (BMI 30-39.9) Elevated blood pressure reading Surgical History Hx of colonoscopy (~01/22/21) Hx of lumbar discectomy (~2000) Status post glaucoma surgery (~05/02/20) History of trabeculectomy (~08/24/19) Family History Mother Hypertension Social History Household Members Other:: Housing: Apartment Alcohol intake: current Alcohol intake frequency: holidays/special occasions only Patient Tobacco Use Status: Never used Tobacco e-Cigarette/Vaping Use: Never Used Second Hand Smoke Exposure: Yes service: No Current occupational status: retired and disabled Cognitive needs: No Hearing needs: No Vision needs: No Questionnaire PHQ-9 Over the last 2 weeks, how often have you been bothered by any of the following problems? 1. Little interest or pleasure in doing things: not at all 2. Feeling down, depressed, or hopeless: not at all 3. Trouble falling or staying asleep, or sleeping too much: not at all 4. Feeling tired or having little energy: not at all 5. Poor appetite or overeating: not at all 6. Feeling bad about yourself - or that you are a failure or have let yourself or your family down: not at all 7. Trouble concentrating on things, such as reading the newspaper or watching television: not at all 8. Moving or speaking so slowly that other people could have noticed. Or the opposite - being so fidgety or restless that you have been moving around a lot more than usual: not at all 9. Thoughts that you would be better off or of hurting yourself in some way: not at all Total score: 0 Depression Screening Interpretation: Negative Depression Screening Done: Yes 02152 - PHQ-9 Billing: Yes Source: Developed by Drs. Mio Cochran, Christelle Frank, Fransisco Spicer and colleagues, with an educational stephanie from [employer]. Thrive Questionnaire Date Thrive assessed: 12/09/23 I am a: Patient What is your living situation today?: I have a steady place to live Within the past 12 months, did the food you bought not last and you didn't have the money to get more?: Never true Within the past 12 months, did you worry whether your food would run out before you got money to buy more?: Never true Do you have trouble paying for medicines?: No Do you have trouble getting transportation to medical appointments?: No Do you have trouble paying your heating and electricity bill?: No Do you have trouble taking care of your child, family member or friend?: No Do you have trouble with day-to-day activities such as bathing, preparing meals, shopping, managing finances, etc.?: No Are you currently unemployed and looking for a job?: No Are you interested in more education?: No Please select the resources that you would like help with: None Currently or been in a relationship where the following occur: no concerns reported THRIVE Score: 0 AUDIT C Alcohol Use Questionnaire (AUDIT-C) 1. How often do you have a drink containing alcohol?: Monthly or less 2. How many drinks containing alcohol do you have on a typical day when you are drinking?: 1 or 2 3. How often do you have six or more drinks on one occasion?: Never Total Score: 1 Score Reviewed/Action Taken: Yes JODIE-7 AMB Questionnaire JODIE-7 Date JODIE - 7 assessed: 12/09/23 Feeling nervous, anxious, or on edge: 0 = Not at all Not being able to stop or control worryin = Not at all Worrying too much about different things: 0 = Not at all Trouble relaxin = Not at all Being so restless that it is hard to sit still: 0 = Not at all Becoming easily annoyed or irritable: 0 = Not at all Feeling afraid as if something awful might happen: 0 = Not at all Total JODIE-7 score (0-4 normal; 5-9 mild; 10-14 moderate; 15-21 severe): 0 Source: Developed by Drs. Mio Cochran, Christelle Frank, Fransisco Spicer and colleagues, with an educational stephanie from [employer]. JODIE-7 Assessment Billing JODIE-7 Assessment Tool: JODIE-7 Assessment 00689 Review of Systems Const Denies chills, Denies fatigue, Denies fever(s) and Denies headache(s) ENT Denies dysphagia, Denies dizziness, Denies otalgia, Denies headache(s), Denies neck pain, Denies odynophagia and Denies sore throat Card Denies chest pain, Denies palpitations and Denies dyspnea Resp Denies cough and Denies dyspnea GI Denies abdominal pain, Denies constipation, Denies dysphagia, Denies heartburn, Denies diarrhea, Denies nausea, Denies odynophagia and Denies vomiting Denies dysuria, Denies nocturia and Denies urinary frequency Musc Denies back pain and Denies neck pain Skin/Breast Denies rash Neuro Denies dizziness and Denies headache(s) Psych Denies anxiety Endo Denies fatigue and Denies palpitations Physical exam (Primary Care) Vital Signs: Last Vital Signs Pulse 55 12/09/23 09:45 BP 126/80 12/09/23 09:45 Pulse Ox 96 12/09/23 09:45 Oxygen Delivery Method Room Air 12/09/23 09:45 BMI result Body Mass Index 33.6 Tobacco/Smoking Status: Tobacco use Status Tobacco use date assessed 12/09/23 12/09/23 09:46 Patient Tobacco Use Status Never used Tobacco 12/09/23 09:46 e-Cigarette/Vaping Use Never Used 12/09/23 09:46 Depression Screening Interpretation: Negative Thrive Assessment: Date of Thrive Assessment Date Thrive assessed 12/09/23 12/09/23 09:46 Currently or been in a relationship where the following occur: no concerns reported Const General: no acute distress and alert HENMT Throat: Yes posterior oropharynx normal and Yes tonsils normal (no TP congestion) Neck Neck: Yes no lymphadenopathy and Yes supple Thyroid: Thyroid normal Resp Auscultation: clear to auscultation bilaterally, no rales and no wheezes Cardio Rate: regular rate Rhythm: regular rhythm Heart sounds: no murmurs GI Palpation (GI): Soft to palpation and nontender Auscultation: normal bowel sounds General: Yes no CVA tenderness Back/Spine/Pelvis Back: no CVA tenderness Thoracic/Lumbar Spine: No lumbar spinal tenderness Skin Rashes: no rashes Extrem General: Yes no clubbing, cyanosis or edema Results Reviewed Results Reviewed: Laboratory Tests 06/10/23 06/10/23 14:19 14:25 WBC 4.1 L Hgb 15.0 Hct 44.3 Plt Count 196 Sodium 140 Potassium 4.0 Creatinine 0.96 Estimated GFR > 60 Fasting Glucose 86 Calcium 9.3 AST 55 H ALT 104 H Triglycerides 79 Cholesterol 245 H LDL Cholesterol, Calc 173 H HDL Cholesterol 57 Ur Specific [place] >= 1.030 H Urine Protein Negative Urine Glucose (UA) Negative Urine Blood Negative Urine Nitrite Negative Ur Leukocyte Esterase Negative Assessment and Plan Assessment & Plan (1) Pure hypercholesterolemia: Code(s): E78.00 - Pure hypercholesterolemia, unspecified Plan: Reinforced low cholesterol diet Will recheck his labs and fasting lipids WENDY for follow up - advised that his total and LDL cholesterol done back in May 2023 remain elevated and have increased slightly from his previous numbers Discussed that if he cannot get them down to normal / recommended range, we may have to consider pharmacotherapy Patient has switched over to a vegetarian diet in July 2023 and this will hopefully help with his cholesterol numbers Will have him recheck his labs again in 6 months before he returns for his annual physical examination (2) Elevated LFTs: Code(s): R79.89 - Other specified abnormal findings of blood chemistry Plan: He is advised that his LFTs have increased again on his recent labs in May 2023 - advised again that they are most likely related to his weight and should improve with weight loss Will recheck his LFTs WENDY for follow up (3) Vitamin D deficiency: Code(s): E55.9 - Vitamin D deficiency, unspecified Plan: Continue Vitamin D3 2000 units QD (4) Glaucoma: Code(s): H40.9 - Unspecified glaucoma Qualifiers: Glaucoma type: unspecified Laterality: bilateral Qualified Code(s): H40.9 - Unspecified glaucoma Plan: Continue Dorzolamide 2% eye drops 1 drop into each eye BID, Combigan 0.2-0.5% 1 drop into each eye BID, Rocklatan 0.02-0.005% 1 drop into each eye QD, Pilocarpine HCl 1% 1 drop into the right eye QID and Prednisolone acetate 1% 2 drops into the left eye QD Used to take Methazolamide 50 mg BID and Acetazolamide 250 mg BID but these have been discontinued by ophthalmology Follow up with ophthalmology at the [facility] in [place] as scheduled (5) Anxiety: Code(s): F41.9 - Anxiety disorder, unspecified Plan: Continue Doxepin 25 mg Q HS PRN (6) Obesity (BMI 30-39.9): Code(s): E66.9 - Obesity, unspecified Plan: Reinforced diet/exercise as tolerated/lose weight Plan To return in 6 months for his annual physical examination Orders: Orders Comprehensive [place]. Panel Fast Today E78.00 - Pure hypercholesterolemia, unspecified Lipid Panel Today E78.00 - Pure hypercholesterolemia, unspecified Complete Blood Count Auto Diff 6 Months D64.9 - Anemia, unspecified, Z00.00 - Encounter for general adult medical examination without abnormal findings Lipid Panel 6 Months E78.00 - Pure hypercholesterolemia, unspecified, Z00.00 - Encounter for general adult medical examination without abnormal findings TSH reflex Free T4 6 Months E78.00 - Pure hypercholesterolemia, unspecified, Z00.00 - Encounter for general adult medical examination without abnormal findings Comprehensive [place]. Panel Fast 6 Months E78.00 - Pure hypercholesterolemia, unspecified, Z00.00 - Encounter for general adult medical examination without abnormal findings UA CC w/rflx Micro + Cult 6 Months R30.0 - Dysuria, Z00.00 - Encounter for general adult medical examination without abnormal findings Vitamin D 25-OH Total 6 Months E55.9 - Vitamin D deficiency, unspecified, Z00.00 - Encounter for general adult medical examination without abnormal findings Prostate Specific Antigen Scr 6 Months Z00.00 - Encounter for general adult medical examination without abnormal findings Gamma Glutamyl Transpeptidase Today R79.89 - Other specified abnormal findings of blood chemistry Coding Level of Care Code Est Pt Level 4 (20806) Diagnoses Pure hypercholesterolemia E78.00 Elevated LFTs R79.89 Vitamin D deficiency E55.9 Glaucoma of both eyes, unspecified glaucoma type H40.9 Glaucoma type: unspecified Laterality: bilateral Anxiety F41.9 Obesity (BMI 30-39.9) E66.9 Additional Codes JODIE-7 Assessment Billing - JODIE-7 Assessment Tool: JODIE-7 Assessment 54236 ([id number])
== END 2023-12-09 10:32 | disposition home or self-care (01) ==
PROVIDERS: PCP Internal Medicine; Visit Provider Internal Medicine
DX: E78.00 Pure hypercholesterolemia, unspecified (principal); E66.9 Obesity, unspecified; Z68.33 Body mass index [BMI] 33.0-33.9, adult; R79.89 Other specified abnormal findings of blood chemistry; E55.9 Vitamin D deficiency, unspecified; H40.9 Unspecified glaucoma; F41.9 Anxiety disorder, unspecified
CPT/HCPCS: 99214

== ENCOUNTER 2023-12-09 10:40 | Outpatient (REF) | payer MEDICARE, MEDICAID, SELFPAY ==
[2023-12-09 12:13] LABS: Alanine Aminotransferase 55 U/L (0-40); Albumin Level 4.4 g/dL (3.5-5.0); Alkaline Phosphatase 57 U/L (39-117); Anion Gap 13 (12-20); Aspartate Amino Transferase 31 U/L (5-37); Bilirubin Total 0.7 mg/dL (0.0-1.0); Blood Urea Nitrogen 21 mg/dL (9-16); Calcium 9.6 mg/dL (8.4-10.2); Carbon Dioxide 25 mmol/L (22-29); Chloride 108 mmol/L (96-108); Cholesterol 203 mg/dL (<200); Estimated Glomerular Filt Rate > 60; Gamma Glutamyl Transpeptidase 107 U/L (11-51); Glucose Fasting 81 mg/dL (60-99); HDL Cholesterol 51 mg/dL (>40); LDL Cholesterol Calculated 140 mg/dL (<100); Potassium 4.2 mmol/L (3.3-5.1); Sodium 142 mmol/L (135-145); Total Protein 7.7 g/dL (6.5-8.0); Triglycerides 61 mg/dL (<150)
[2023-12-09 13:16] LABS: Appearance Urine Clear; Color Urine Dark Yellow; Glucose Urine UA Negative (Negative); Leukocyte Esterase Urine Negative (Negative); Nitrite Urine Negative (Negative); PH 5.5 (5.0-9.0); Specific Gravity - Urine >= 1.030 (1.005-1.025); Urine Blood Negative (Negative); Urine Ketones 15 mg/dL (Negative); Urine Protein Trace mg/dL (Neg-Trace)
== END 2023-12-09 10:41 | disposition home or self-care (01) ==
LOC: HO.LAB 10:40
PROVIDERS: PCP Internal Medicine; Visit Provider Internal Medicine
DX: Z00.00 Encounter for general adult medical examination without abnormal findings (principal); R79.89 Other specified abnormal findings of blood chemistry; E78.00 Pure hypercholesterolemia, unspecified; R30.0 Dysuria
CPT/HCPCS: 36415; 80053; 80061; 81003; 82977

== ENCOUNTER 2024-06-15 09:25 | Outpatient (AMB) | payer OTHER, SELFPAY ==
[2024-06-15 09:29] VITALS: BP 124/80; PULSE 48; O2SAT 98; BMI 36.4
--- NOTE | 2024-06-15 09:29 | MHC.PC.OV ---
Vital Signs 06/15/24 09:29 Height 5 ft 10 in Weight 253 lb 8 oz BMI 36.4 BP 124/80 Blood Pressure Location Lt brachial Position Sitting Pulse 48 L Pulse Source Pulse Oximeter Pulse Oximetry (%) 98 Oxygen Delivery Method Room Air Intake Visit Reasons: Annual exam Shoemaker Custom Required: No Accompanied by: Self / Same As Patient Allergies No Known Allergies Allergy (Verified 06/15/24 10:05) Medication List - Last Reconciled 06/15/24 by Geovanny Suazo MD brimonidine-timolol 0.2-0.5 % (Combigan) 1 drp ophthalmic (eye) BID cholecalciferol (vitamin D3) 50 mcg PO DAILY 90 days dorzolamide 2% 1 drp ophthalmic (eye) BID doxepin 25 mg PO BEDTIME netarsudil-latanoprost 0.02-0.005 % (Rocklatan) 1 drp ophthalmic (eye) DAILY pilocarpine HCl 1% 1 drp ophthalmic (eye) QID prednisolone acetate 1% 2 drps ophthalmic (eye) .QD Tobacco use date assessed: 06/15/24 Dental Screening Dental Screen Date: 06/15/24 Did you have a dental visit in the last 12 months?: Yes Did you have a dental problem in the last 6 months where you did not have access to dental care?: No Was dental information given to patient?: Patient has dentist HPI Annual exam HPI Details Patient comes in today for his annual physical examination States that he currently feels okay Relates that he switched over to a vegetarian diet in July 2023 and has been a strict vegetarian since He denies any headaches or dizziness Denies any chest pains, no SOB No nausea/vomiting, no abdominal pain No change in bowel habits noted He denies any acute urinary symptoms He was not able to get his follow up labs done prior to his appointment today He is up-to-date with his screening colonoscopy - does not need repeat colonoscopy until 2030 [facility] Medical History Vitamin D deficiency Pure hypercholesterolemia Anxiety Colon cancer screening Elevated LFTs Obesity (BMI 30-39.9) Elevated blood pressure reading Surgical History Hx of colonoscopy (~01/22/21) Hx of lumbar discectomy (~2000) Status post glaucoma surgery (~05/02/20) History of trabeculectomy (~08/24/19) Family History Mother Hypertension Social History Household Members Other:: Housing: Apartment Alcohol intake: current Alcohol intake frequency: holidays/special occasions only Patient Tobacco Use Status: Never used Tobacco e-Cigarette/Vaping Use: Never Used Second Hand Smoke Exposure: Yes service: No Current occupational status: retired and disabled Cognitive needs: No Hearing needs: No Vision needs: No Questionnaire PHQ-9 Over the last 2 weeks, how often have you been bothered by any of the following problems? 1. Little interest or pleasure in doing things: nearly every day 2. Feeling down, depressed, or hopeless: several days 3. Trouble falling or staying asleep, or sleeping too much: not at all 4. Feeling tired or having little energy: not at all 5. Poor appetite or overeating: not at all 6. Feeling bad about yourself - or that you are a failure or have let yourself or your family down: not at all 7. Trouble concentrating on things, such as reading the newspaper or watching television: not at all 8. Moving or speaking so slowly that other people could have noticed. Or the opposite - being so fidgety or restless that you have been moving around a lot more than usual: not at all 9. Thoughts that you would be better off or of hurting yourself in some way: not at all Total score: 4 Depression Screening Interpretation: Positive Depression Screening Follow-up: Follow-up Visit Requested Depression Screening Done: Yes 87436 - PHQ-9 Billing: Yes Source: Developed by Drs. Mio Cochran, Christelle Frank, Fransisco Spicer and colleagues, with an educational stephanie from [employer]. Thrive Questionnaire Date Thrive assessed: 06/15/24 I am a: Patient What is your living situation today?: I have a steady place to live Within the past 12 months, did the food you bought not last and you didn't have the money to get more?: I choose not to answer this question Within the past 12 months, did you worry whether your food would run out before you got money to buy more?: I choose not to answer this question Do you have trouble paying for medicines?: No Do you have trouble getting transportation to medical appointments?: I choose not to answer this question Do you have trouble paying your heating and electricity bill?: Yes Do you have trouble taking care of your child, family member or friend?: No Do you have trouble with day-to-day activities such as bathing, preparing meals, shopping, managing finances, etc.?: I choose not to answer this question Are you currently unemployed and looking for a job?: I choose not to answer this question Are you interested in more education?: I choose not to answer this question Please select the resources that you would like help with: Care for elder or disabled Currently or been in a relationship where the following occur: No concerns reported THRIVE Score: 1 AUDIT C Alcohol Use Questionnaire (AUDIT-C) 1. How often do you have a drink containing alcohol?: Monthly or less 2. How many drinks containing alcohol do you have on a typical day when you are drinking?: 1 or 2 3. How often do you have six or more drinks on one occasion?: Never Total Score: 1 Score Reviewed/Action Taken: Yes JODIE-7 AMB Questionnaire JODIE-7 Date JODIE - 7 assessed: 06/15/24 Feeling nervous, anxious, or on edge: 0 = Not at all Not being able to stop or control worryin = Several days Worrying too much about different things: 2 = More than half the days Trouble relaxin = More than half the days Being so restless that it is hard to sit still: 2 = More than half the days Becoming easily annoyed or irritable: 2 = More than half the days Feeling afraid as if something awful might happen: 0 = Not at all Total JODIE-7 score (0-4 normal; 5-9 mild; 10-14 moderate; 15-21 severe): 9 Source: Developed by Drs. Mio Cochran, Christelle Frank, Fransisco Spicer and colleagues, with an educational stephanie from [employer]. Review of Systems Const Denies chills, Denies fatigue, Denies fever(s) and Denies headache(s) Eyes Reports blurry vision (on and off), Denies change in vision, Denies irritation and Denies itchy eyes ENT Denies dysphagia, Denies dizziness, Denies otalgia, Denies headache(s), Denies neck pain, Denies odynophagia and Denies sore throat Card Denies chest pain, Denies palpitations and Denies dyspnea Resp Denies cough, Denies dyspnea and Denies wheezing GI Denies abdominal pain, Denies constipation, Denies dysphagia, Denies heartburn, Denies diarrhea, Denies nausea, Denies odynophagia and Denies vomiting Denies dysuria, Denies nocturia and Denies urinary frequency Musc Denies back pain and Denies neck pain Skin/Breast Denies rash Neuro Denies dizziness and Denies headache(s) Psych Denies anxiety Endo Denies fatigue and Denies palpitations Aller/Immun Denies itchy eyes and Denies wheezing Physical exam (Primary Care) Vital Signs: Last Vital Signs Pulse 48 L 06/15/24 09:29 BP 124/80 06/15/24 09:29 Pulse Ox 98 06/15/24 09:29 Oxygen Delivery Method Room Air 06/15/24 09:29 BMI result Body Mass Index 36.4 Tobacco/Smoking Status: Tobacco use Status Tobacco use date assessed 06/15/24 06/15/24 09:34 Patient Tobacco Use Status Never used Tobacco 06/15/24 09:34 e-Cigarette/Vaping Use Never Used 06/15/24 09:34 Depression Screening Interpretation: Positive Depression Screening Follow-up: Follow-up Visit Requested Thrive Assessment: Date of Thrive Assessment Date Thrive assessed 06/15/24 06/15/24 09:34 Currently or been in a relationship where the following occur: No concerns reported Const General: no acute distress, alert and awake Orientation/consciousness: patient oriented x3 HENMT Head: Yes normocephalic and Yes atraumatic Ears: external ears normal, TM's normal bilaterally and EAC's normal General nose exam: No nasal discharge present Face and sinus: Yes normal facial exam and Yes sinuses nontender Teeth and gingiva: dentition normal Throat: Yes posterior oropharynx normal and Yes tonsils normal (no TP congestion) Eyes Eyelids: Yes eyelids normal Conjunctivae: conjunctivae normal Pupils: Equal, round and reactive pupils present EOM: EOMs intact bilaterally Neck Neck: Yes no lymphadenopathy and Yes supple Thyroid: Thyroid normal Resp Auscultation: clear to auscultation bilaterally, no rales and no wheezes Cardio Rate: regular rate Rhythm: regular rhythm Heart sounds: no murmurs GI Palpation (GI): Soft to palpation, nontender and No hepatosplenomegaly present Auscultation: normal bowel sounds General: Yes no CVA tenderness Back/Spine/Pelvis Back: no CVA tenderness Thoracic/Lumbar Spine: thoracic and lumbar spine normal to inspection Skin Lesions: no lesions Rashes: no rashes Neuro General: patient oriented x3, moves all extremities, no focal motor deficits and CN's II-XI intact bilaterally Cranial nerves: Yes Equal, round and reactive pupils present Cognition (Neuro): normal cognition Gait exam (Neuro): Normal gait present Extrem General: Yes no clubbing, cyanosis or edema Coding Level of Care Code Est Pt Prev Care 40-64y(70435) Diagnoses Annual physical exam Z00.00 Pure hypercholesterolemia E78.00 Elevated LFTs R79.89 Vitamin D deficiency E55.9 Glaucoma of both eyes, unspecified glaucoma type H40.9 Glaucoma type: unspecified Laterality: bilateral Anxiety F41.9 Obesity (BMI 30-39.9) E66.9 Additional Codes PHQ-9 - 10874 - PHQ-9 Billing: Yes ([id number]) Assessment & Plan Assessment & Plan (1) Annual physical exam: Code(s): Z00.00 - Encounter for general adult medical examination without abnormal findings Category: Medical Plan: Patient was not able to get his follow up labs done prior to his appointment today - states that he will try to get them done WENDY He is up-to-date with his screening colonoscopy - will be due for repeat colonoscopy in 2030 (2) Pure hypercholesterolemia: Code(s): E78.00 - Pure hypercholesterolemia, unspecified Category: Medical Plan: Reinforced low cholesterol diet Will recheck his labs and fasting lipids WENDY for follow up - advised that his total and LDL cholesterol done back in November 2023 remain elevated but have improved slightly from his previous numbers Discussed again that if he cannot get them down to normal / recommended range, we will have to consider pharmacotherapy Patient has switched over to a vegetarian diet in July 2023 and this will hopefully continue to help with his cholesterol numbers Will have him recheck his labs again in 6 months before he returns for his follow up visit (3) Elevated LFTs: Code(s): R79.89 - Other specified abnormal findings of blood chemistry Category: Medical Plan: He is advised that his LFTs have improved from previous but his ALT is still slightly elevated on his previous labs in November 2023 - advised again that this is most likely related to his weight and should improve with weight loss Will recheck his LFTs WENDY for follow up (4) Vitamin D deficiency: Code(s): E55.9 - Vitamin D deficiency, unspecified Category: Medical Plan: Continue Vitamin D3 2000 units QD Will recheck his Vitamin D level for follow up (5) Glaucoma: Code(s): H40.9 - Unspecified glaucoma Category: Medical Qualifiers: Glaucoma type: unspecified Laterality: bilateral Qualified Code(s): H40.9 - Unspecified glaucoma Plan: Continue Dorzolamide 2% eye drops 1 drop into each eye BID, Combigan 0.2-0.5% 1 drop into each eye BID, Rocklatan 0.02-0.005% 1 drop into each eye QD, Pilocarpine HCl 1% 1 drop into the right eye QID and Prednisolone acetate 1% 2 drops into the left eye QD Follow up with ophthalmology at the [facility] in [place] as scheduled (6) Anxiety: Code(s): F41.9 - Anxiety disorder, unspecified Category: Medical Plan: Continue Doxepin 25 mg Q HS PRN (7) Obesity (BMI 30-39.9): Code(s): E66.9 - Obesity, unspecified Category: Medical Plan: Reinforced diet/exercise as tolerated/lose weight Plan Follow up in 6 months Orders: Orders Comprehensive [place]. Panel Fast 6 Months E78.00 - Pure hypercholesterolemia, unspecified Vitamin D 25-OH Total 6 Months E55.9 - Vitamin D deficiency, unspecified Lipid Panel 6 Months E78.00 - Pure hypercholesterolemia, unspecified
== END 2024-06-15 10:29 | disposition home or self-care (01) ==
PROVIDERS: PCP Internal Medicine; Visit Provider Internal Medicine
DX: Z00.00 Encounter for general adult medical examination without abnormal findings (principal); E78.00 Pure hypercholesterolemia, unspecified; E66.9 Obesity, unspecified; Z68.36 Body mass index [BMI] 36.0-36.9, adult; E55.9 Vitamin D deficiency, unspecified; H40.9 Unspecified glaucoma; F41.9 Anxiety disorder, unspecified

== ENCOUNTER → 2024-06-15 09:25 | Outpatient (BNVA) | payer OTHER, SELFPAY | PROVIDERS: PCP Internal Medicine; Visit Provider Internal Medicine | DX: Z00.00 Encounter for general adult medical examination without abnormal findings (principal); E78.00 Pure hypercholesterolemia, unspecified; R79.89 Other specified abnormal findings of blood chemistry; E55.9 Vitamin D deficiency, unspecified; H40.9 Unspecified glaucoma; F41.9 Anxiety disorder, unspecified; E66.9 Obesity, unspecified | CPT/HCPCS: 96127; 99396 ==

== ENCOUNTER 2024-12-05 11:59 | Outpatient (REF) | payer OTHER, SELFPAY ==
[2024-12-05 12:21] LABS: MANUAL DIFF FLAG NO
--- OUTSIDE RECORDS SUMMARY | 2024-12-05 12:35 | XMS_ITS ---
Author Name Pamela [facility] [place]. Vicki Christina Address [address] [place] [address] Phone [phone] [facility] Care Team Providers Care Seat Pack Inspector Name Role Phone Vicki Santiago Unavailable [phone] GeminiRosamaria Unavailable [phone] AHMED, ASEEF Unavailable [phone] Reason for Referral Not Available Allergies, adverse reactions, alerts Allergen Type Reaction Severity Status Onset Date RAGWEED Allergy to substance (disorder) Unknown Active N/A History of medication use Medication Class Instructions Start Date End Date Rocklatan 0.02-0.005 % Solution PLACE 1 DROP INTO EACH EYE DAILY. 2022-07-01 No Data Available Dorzolamide 2 % Solution INSTILL 1 DROP INTO BOTH EYES TWICE A DAY 2022-11-18 No Data Available Brimonidine Tartrate-Timolol 0.2-0.5 % Solution INSTILL 1 DROP INTO BOTH EYES TWICE A DAY 2022-11-18 No Data Available Pilocarpine 1 % Solution Ophthalmic 1 drop ophthalmically into affected eye 4 times per day 2023-04-13 No Data Available prednisoLONE Acetate 1 % Suspension Ophthalmic 1 drop ophthalmically into affected eye every other day 2023-04-13 No Data Available Problem List Problem Status Onset Date Resolved Date Primary open angle glaucoma of both eyes, severe stage Active 2023-04-13 N/A Encounters Encounters Type Facility Date of Service Diagnosis/Co mplaint New patient, 30-44min 1 stable chronic or 2 minor; add modifier 95 for video, modifier 93 for [facility], ([place]) 04[place]13/2023 Primary open-angle glaucoma, bilateral, severe stage New patient, 30-44min 1 stable chronic or 2 minor; add modifier 95 for video, modifier 93 for [facility], [place] 04/13/2023 New patient, 30-44min 1 stable chronic or 2 minor; add modifier 95 for video, modifier 93 for [facility], ([place]) 04/13/2023 New patient, 30-44min 1 stable chronic or 2 minor; add modifier 95 for video, modifier 93 for phone [facility], ([place]) 04/13/2023 New patient, 30-44min 1 stable chronic or 2 minor; add modifier 95 for video, modifier 93 for phone [facility] ([place]) 04/13/2023 New patient, 30-44min 1 stable chronic or 2 minor; add modifier 95 for video, modifier 93 for phone [facility], ([place]) 04/13/2023 New patient, 30-44min 1 stable chronic or 2 minor; add modifier 95 for video, modifier 93 for phone [facility], ([place] 04/13/2023 Vital Signs Date of Collection Vitals 2023-04-13 08:25:32 Height - 175.26 cmWe ight - 102.06 kgBody Mass Index (BMI) - 33.23 kg/m2Pain Scale - 0.0 {score} Social History Social History Social History Observation Description Effec tive Time Current Smoking Status Never smoker 2024-11-24 2 Sex Male History of Procedures Procedures Service Procedure code Service date Servicing provider Phone# New patient, 30-44min 1 stable chronic or 2 minor; add modifier 95 for video, modifier 93 for phone [phone] No Data Available No Data Available BMI obtained (3008F) 3008F 2023-04-13 No Data Availab le No Data Available Advance care planning discussed and documented ? advance care plan or surrogate decision-maker was documented in the medical record. (1123F) 1123F 2023-04-13 No Data Available No Data Availa ble Pain Assessment - NO pain present (1126F) 1126F 2023-04-13 No Data Available No Data A vailable Medication List Documented (1159F) 1159F 2023-04-13 No Data Available No Data Tiffany ilable Medication Review by prescribing provider or pharmacist documented (1160F) 1160F 2023-04-13 No Data Available No Data Tiffany ilable Functional Status Assessed (1170F) 1170F 2023-04-13 No Data Available No Data Avail able Functional Status Functional Category Effective Dates Cognition Status: Oriented to Person, Pl reyna and Time 2023-04-13 IADL Shopping: Independent; Housekeeping: Independent; Meal Prep: Independent; Medications Management: Independent 2023-04-13 Falls in last 6 Months: No 2023-04-13 ADL Eating: Independent; Amb ulation: Some Help Needed; Dressing: Independent; Bathing: Independent; Toileting: Independent 2023-04-13 Mental Status Status Date Cognition Status: Oriented to Person, Pl reyna and Time 2023-04-13 Assessments Date of Service Assessments 2023-04-13 08:25:32 Primary open angle g laucoma of both eyes, severe stage Plan of Care Date of Service Plans 2023-04-13 08:25:32 BMI obtained (3008F) Televideo new patient, 30-44min 1 stable chronic or 2 minor; add modifier 95Advance care planning discussed and documented ? advance care plan or surrogate decision-maker was documented in the medical record. (1123F)Continue to see PCP. Follow-up with [facility] as needed for any acute or disease education needs that may arise 16/02.Discussed the importance of f/u with specialist and regular eye exams as scheduled and recommended UV-blocking sunglasses when going outside.. Encouraged adherence to medication regimen; Rocklatan 0.02-0.005 % Solution PLACE 1 DROP INTO EACH EYE DAILY, prednisoLONE Acetate 1 % Suspension Ophthalmic 1 drop ophthalmically into affected eye every other day, Pilocarpine 1 % Solution Ophthalmic 1 drop ophthalmically into affected eye 4 times per day, Dorzolamide 2 % Solution INSTILL 1 DROP INTO BOTH EYES TWICE A DAY, and Brimonidine Tartrate-Timolol 0.2-0.5 % Solution INSTILL 1 DROP INTO BOTH EYES TWICE A DAY Goals Date Goal 2023-04-13 Verbal consent obati karlos to conduct assessment, had a detailed discussion with patient/caregiver about [facility] 16/02 services, their diagnosis, and medications. Patient/caregiver verbalized understanding by teach-back method. All available medications were reconciliated, counseled patient/caregiver on treatment plan, compliance, and f/u care coordination with their established PCP and specialists. Health Concerns Date Concern 2023-04-13 Patient seen using a udio and video. Patient agreed to visit via telehealth with . Introductory visit with [facility] to establish care. Today, patient has chief complaint of: establishing care.Reviewed Allergies, Medications, Active Medical conditions, past medical/surgical history, Social history. 2023-04-13 Most recent hospital stay(s) or ER visit(s) and precipitating factors: denies any visits in the last few months
[2024-12-05 13:51] LABS: Basophils Percent Auto 0.6 % (0-2); Eosinophils Absolute Auto 0.3 X10*3/uL (0.0-0.4); Eosinophils Percent Auto 9.3 % (0-4); Hematocrit 45.7 % (42.0-52.0); Hemoglobin 15.3 g/dl (14.0-18.0); Imm Gran Abs Auto 0.01 X10*3/uL (0.00-0.03); Imm Gran Pct Auto 0.3 % (0.0-0.4); Lymphocytes Absolute Auto 1.1 X10*3/uL (1.2-4.9); Lymphocytes Percent Auto 32.3 % (20-40); Mean Corpuscular HGB Conc 33.5 g/dl (31.0-36.0); Mean Corpuscular Hemoglobin 28.9 pg (27.0-33.0); Mean Corpuscular Volume 86.2 fL (80.0-98.0); Mean Platelet Volume 10.5 fL (9.4-12.4); Monocytes Absolute Auto 0.3 X10*3/uL (0.1-1.2); Neutrophils Absolute Auto 1.6 x10*3/uL (2.0-8.3); Neutrophils Percent Auto 48.5 % (45-73); Platelet Count 177 X10*3/uL (160-400); Red Cell Distribution Width 12.8 % (11.0-16.0); White Blood Count 3.3 X10*3/uL (4.8-10.8)
[2024-12-05 14:11] LABS: Appearance Urine Clear; Color Urine Yellow; Glucose Urine UA Negative (Negative); Leukocyte Esterase Urine Negative (Negative); Nitrite Urine Negative (Negative); Urine Blood Negative (Negative); Urine Ketones Trace mg/dL (Negative); Urine Protein Negative (Neg-Trace)
[2024-12-05 14:32] LABS: Prostate Specific Antigen Scr 0.74 ng/mL (<0.05-4.0)
[2024-12-05 15:01] LABS: Vitamin D 25-OH Total 15.7 ng/mL (>30)
[2024-12-05 15:02] LABS: Anion Gap 11 (12-20)
[2024-12-05 15:07] LABS: Alanine Aminotransferase 108 U/L (0-40); Albumin Level 4.5 g/dL (3.5-5.0); Alkaline Phosphatase 66 U/L (39-117); Aspartate Amino Transferase 56 U/L (5-37); Bilirubin Total 0.6 mg/dL (0.0-1.0); Blood Urea Nitrogen 15 mg/dL (9-16); Calcium 9.5 mg/dL (8.4-10.2); Carbon Dioxide 26 mmol/L (22-29); Chloride 107 mmol/L (96-108); Cholesterol 264 mg/dL (<200); Estimated Glomerular Filt Rate > 60; Glucose Fasting 80 mg/dL (60-99); HDL Cholesterol 54 mg/dL (>40); LDL Cholesterol Calculated 195 mg/dL (<100); Potassium 3.9 mmol/L (3.3-5.1); Sodium 140 mmol/L (135-145); Total Protein 7.9 g/dL (6.5-8.0); Triglycerides 79 mg/dL (<150)
== END 2024-12-05 12:00 | disposition home or self-care (01) ==
LOC: HO.LAB 11:59
PROVIDERS: PCP Internal Medicine; Visit Provider Internal Medicine
DX: Z00.00 Encounter for general adult medical examination without abnormal findings (principal); E78.00 Pure hypercholesterolemia, unspecified; D64.9 Anemia, unspecified; E55.9 Vitamin D deficiency, unspecified; R30.0 Dysuria; Z12.5 Encounter for screening for malignant neoplasm of prostate
CPT/HCPCS: 36415; 80053; 80061; 81003; 82306; 84153; 84443; 85025

== ENCOUNTER 2024-12-13 09:46 | Outpatient (REF) | payer OTHER, SELFPAY ==
--- OUTSIDE RECORDS SUMMARY | 2024-12-13 12:14 | XMS_ITS ---
[facility] [place] Vicki Christina Address [address] [place] [address] Phone [phone] [facility] Care Team Providers Care Dressage Instructor Name Role Phone Vicki Santiago Unavailable [phone] GeminiRosamaria roman Unavailable [phone] AHMED, ASEEF Unavailable [phone] Reason for Referral Not Available Allergies, adverse [...] modifier 95 for video, modifier 93 for [facility], ([place]) 04/13/2023 Primary open-angle glaucoma, bilateral, severe stage New patient, 30-44min 1 stable chronic or 2 minor; add modifier 95 for video, modifier 93 for [facility], ([place]) 04/13/2023 New patient, 30-44min 1 stable chronic or 2 minor; add modifier 95 for video, modifier 93 for [facility], ([place] 04/13/2023 New patient, 30-44min 1 stable chronic or 2 minor; add modifier 95 for video, modifier 93 for phone [facility], ([place] 04/13/2023 New patient, 30-44min 1 stable chronic or 2 minor; add modifier 95 for video, modifier 93 for phone [facility] ([place]) 04/13/2023 New patient, 30-44min 1 stable chronic or 2 minor; add modifier 95 for video, modifier 93 for phone [facility], ([place]) 04/13/2023 New patient, 30-44min 1 stable chronic or 2 minor; add modifier 95 for video, modifier 93 for phone [facility], ([place]) 04/13/2023 Vital Signs Date of Collection Vitals [...] 95 for video, modifier 93 for phone [phone] No Data Available No Data Available [...] record. (1123F)Continue to see PCP. Follow-up with [facility] as needed for any acute or [...] had a detailed discussion with patient/caregiver about [facility] 16/02 services, their diagnosis, and medications. Patient/caregiver verbalized understanding by teach-back method. All available medications were reconciliated, counseled patient/caregiver on treatment plan, compliance, and f/u care coordination with their established PCP and specialists. Health Concerns Date Concern 2023-04-13 Patient seen using a udio and video. Patient agreed to visit via telehealth with . Introductory visit with [facility] to establish care. Today, patient has chief complaint of: establishing care.Reviewed Allergies, Medications, Active Medical conditions, past medical/surgical history, Social history. 2023-04-13 Most recent hospital stay(s) or ER visit(s) and precipitating factors: denies any visits in the last few months
[2024-12-13 12:46] LABS: Gamma Glutamyl Transpeptidase 223 U/L (11-51)
[2024-12-14 03:35] LABS: Hepatitis A Antibody IgM 0.16 Index (0-0.79); ~Hepatitis A Antibody IgM Nonreactive (Nonreactive)
[2024-12-14 04:10] LABS: HBc Num1 0.07 S/CO (0.00-0.79); Hepatitis B Core Antibody Nonreactive (Nonreactive); Hepatitis B Surface Antigen Negative (Negative); ~HepC Num1 0.09 S/CO (0.00-0.79); ~Hepatitis B Surface Antibody NONREACTIVE (Nonreactive); ~Hepatitis C Antibody Nonreactive (Nonreactive)
[2024-12-20 07:18] LABS: FIB-ALT 77 U/L (9-46); FIB-Alpha-2-Macroglobulin 137 mg/dL (106-279); FIB-Apolipoprotein A1 180 mg/dL (94-176); FIB-GGT 174 U/L (3-95); FIB-Haptoglobin 15 mg/dL (43-212); FIB-Total Bilirubin 0.6 mg/dL (0.2-1.2); Liver Fibrosis Score 0.48; Liver Fibrosis Stage F2; Nec Inflam Act Grade A2; Nec Inflam Act Score 0.53; Reference ID 5503287
== END 2024-12-13 09:47 | disposition home or self-care (01) ==
LOC: HO.LAB 09:46
PROVIDERS: PCP Internal Medicine; Visit Provider Internal Medicine
DX: E78.00 Pure hypercholesterolemia, unspecified (principal); R79.89 Other specified abnormal findings of blood chemistry; E55.9 Vitamin D deficiency, unspecified; H40.9 Unspecified glaucoma; F41.9 Anxiety disorder, unspecified; E66.9 Obesity, unspecified; Z68.37 Body mass index [BMI] 37.0-37.9, adult; Z79.899 Other long term (current) drug therapy
CPT/HCPCS: 36415; 81596; 82977; 86704; 86706; 86709; 86803; 87340; 96127; 99212

== ENCOUNTER 2024-12-13 09:46 | Outpatient (AMB) | payer OTHER, SELFPAY ==
[2024-12-13 09:47] VITALS: BP 130/86; PULSE 65; O2SAT 98; BMI 37.1
--- NOTE | 2024-12-13 09:47 | MHC.PC.OV ---
Vital Signs 12/13/24 09:47 Height 5 ft 10 in Weight 258 lb 8 oz BMI 37.1 BP 130/86 Blood Pressure Location Lt brachial Position Sitting Pulse 65 Pulse Source Pulse Oximeter Pulse Oximetry (%) 98 Oxygen Delivery Method Room Air Intake Visit Reasons: 6mth f/u Carburetor Specialist Required: No Accompanied by: Self / Same As Patient Allergies No Known Allergies Allergy (Verified 12/13/24 10:23) Medication List - Last Reconciled 12/13/24 by Geovanny Suazo MD brimonidine-timolol 0.2-0.5 % (Combigan) 1 drp ophthalmic (eye) BID cholecalciferol (vitamin D3) 50 mcg PO DAILY 90 days dorzolamide 2% 1 drp ophthalmic (eye) BID doxepin 25 mg PO BEDTIME netarsudil-latanoprost 0.02-0.005 % (Rocklatan) 1 drp ophthalmic (eye) DAILY pilocarpine HCl 1% 1 drp ophthalmic (eye) QID prednisolone acetate 1% 2 drps ophthalmic (eye) .QD Tobacco use date assessed: 12/13/24 Dental Screening Dental Screen Date: 12/13/24 Did you have a dental visit in the last 12 months?: Yes Did you have a dental problem in the last 6 months where you did not have access to dental care?: No Was dental information given to patient?: Patient has dentist HPI 6mth f/u HPI Details Patient comes in today for his follow up visit States that he feels okay He denies any headaches or dizziness Denies any chest pains, no SOB No nausea/vomiting, no abdominal pain No change in bowel habits noted He had his follow up labs done last week - to discuss his results [facility] Medical History Vitamin D deficiency Pure hypercholesterolemia Anxiety Colon cancer screening Elevated LFTs Obesity (BMI 30-39.9) Elevated blood pressure reading Surgical History Hx of colonoscopy (~01/22/21) Hx of lumbar discectomy (~2000) Status post glaucoma surgery (~05/02/20) History of trabeculectomy (~08/24/19) Family History Mother Hypertension Social History Household Members Other:: Housing: Apartment Alcohol intake: current Alcohol intake frequency: holidays/special occasions only Patient Tobacco Use Status: Never used Tobacco e-Cigarette/Vaping Use: Never Used Second Hand Smoke Exposure: Yes service: No Current occupational status: retired and disabled Cognitive needs: No Hearing needs: No Vision needs: No Questionnaire PHQ-9 Over the last 2 weeks, how often have you been bothered by any of the following problems? 1. Little interest or pleasure in doing things: not at all 2. Feeling down, depressed, or hopeless: not at all 3. Trouble falling or staying asleep, or sleeping too much: more than half the days 4. Feeling tired or having little energy: not at all 5. Poor appetite or overeating: not at all 6. Feeling bad about yourself - or that you are a failure or have let yourself or your family down: not at all 7. Trouble concentrating on things, such as reading the newspaper or watching television: not at all 8. Moving or speaking so slowly that other people could have noticed. Or the opposite - being so fidgety or restless that you have been moving around a lot more than usual: not at all 9. Thoughts that you would be better off or of hurting yourself in some way: not at all Total score: 2 Depression Screening Interpretation: Negative Depression Screening Done: Yes 15101 - PHQ-9 Billing: Yes Source: Developed by Drs. Mio Cochran, Christelle Frank, Fransisco Spicer and colleagues, with an educational stephanie from [employer]. Thrive Questionnaire Date Thrive assessed: 12/13/24 I am a: Patient What is your living situation today?: I have a steady place to live Within the past 12 months, did the food you bought not last and you didn't have the money to get more?: Never true Within the past 12 months, did you worry whether your food would run out before you got money to buy more?: Never true Do you have trouble paying for medicines?: No Do you have trouble getting transportation to medical appointments?: No Do you have trouble paying your heating and electricity bill?: No Do you have trouble taking care of your child, family member or friend?: No Do you have trouble with day-to-day activities such as bathing, preparing meals, shopping, managing finances, etc.?: No Are you currently unemployed and looking for a job?: No Are you interested in more education?: I choose not to answer this question Please select the resources that you would like help with: Food and Utilities Currently or been in a relationship where the following occur: No concerns reported THRIVE Score: 0 AUDIT C Alcohol Use Questionnaire (AUDIT-C) 1. How often do you have a drink containing alcohol?: Monthly or less 2. How many drinks containing alcohol do you have on a typical day when you are drinking?: 1 or 2 3. How often do you have six or more drinks on one occasion?: Never Total Score: 1 Score Reviewed/Action Taken: Yes JODIE-7 AMB Questionnaire JODIE-7 Date JODIE - 7 assessed: 12/13/24 Feeling nervous, anxious, or on edge: 1 = Several days Not being able to stop or control worryin = Not at all Worrying too much about different things: 1 = Several days Trouble relaxin = Several days Being so restless that it is hard to sit still: 0 = Not at all Becoming easily annoyed or irritable: 2 = More than half the days Feeling afraid as if something awful might happen: 0 = Not at all Total JODIE-7 score (0-4 normal; 5-9 mild; 10-14 moderate; 15-21 severe): 5 Source: Developed by Drs. Mio Cochran, Christelle Frank, Fransisco Spicer and colleagues, with an educational stephanie from [employer]. Review of Systems Const Denies chills, Denies fatigue, Denies fever(s) and Denies headache(s) ENT Denies dysphagia, Denies dizziness, Denies otalgia, Denies headache(s), Denies neck pain, Denies odynophagia and Denies sore throat Card Denies chest pain, Denies palpitations and Denies dyspnea Resp Denies cough, Denies dyspnea and Denies wheezing GI Denies abdominal pain, Denies constipation, Denies dysphagia, Denies heartburn, Denies diarrhea, Denies nausea, Denies odynophagia and Denies vomiting Denies dysuria, Denies nocturia and Denies urinary frequency Musc Denies back pain and Denies neck pain Skin/Breast Denies rash Neuro Denies dizziness and Denies headache(s) Psych Denies anxiety Endo Denies fatigue and Denies palpitations Aller/Immun Denies wheezing Physical exam (Primary Care) Vital Signs: Last Vital Signs Pulse 65 12/13/24 09:47 BP 130/86 12/13/24 09:47 Pulse Ox 98 12/13/24 09:47 Oxygen Delivery Method Room Air 12/13/24 09:47 BMI result Body Mass Index 37.1 Tobacco/Smoking Status: Tobacco use Status Tobacco use date assessed 12/13/24 12/13/24 09:50 Patient Tobacco Use Status Never used Tobacco 12/13/24 09:50 e-Cigarette/Vaping Use Never Used 12/13/24 09:50 PHQ-9: PHQ-9 Score PHQ-9: Total score 2 12/13/24 09:50 Depression Screening Interpretation: Negative Thrive Assessment: Date of Thrive Assessment Date Thrive assessed 12/13/24 12/13/24 09:50 Currently or been in a relationship where the following occur: No concerns reported Const General: no acute distress and alert HENMT Ears: TM's normal bilaterally and EAC's normal Throat: Yes posterior oropharynx normal and Yes tonsils normal (no TP congestion) Neck Neck: Yes supple and No lymphadenopathy Thyroid: Thyroid normal Resp Auscultation: clear to auscultation bilaterally, no rales and no wheezes Cardio Rate: regular rate Rhythm: regular rhythm Heart sounds: no murmurs GI Palpation (GI): Soft to palpation and nontender Auscultation: normal bowel sounds General: Yes no CVA tenderness Back/Spine/Pelvis Back: no CVA tenderness Thoracic/Lumbar Spine: No lumbar spinal tenderness Skin Rashes: no rashes Extrem General: Yes no clubbing, cyanosis or edema Results Reviewed Results Reviewed: Laboratory Tests 12/09/23 12/05/24 12/05/24 11:09 12:07 12:10 WBC 3.3 L Hgb 15.3 Hct 45.7 Plt Count 177 Sodium 140 Potassium 3.9 Creatinine 1.01 Estimated GFR > 60 Fasting Glucose 80 Calcium 9.5 AST 31 56 H ALT 55 H 108 H Triglycerides 61 79 Cholesterol 203 H 264 H LDL Cholesterol, Calc 140 H 195 H HDL Cholesterol 51 54 PSA Screen 0.74 25-OH Vitamin D Total 15.7 L TSH 1.50 Urine pH 7.0 Ur Specific Koppel 1.020 Urine Protein Negative Urine Ketones Trace Urine Blood Negative Urine Nitrite Negative Ur Leukocyte Esterase Negative Coding Level of Care Code Est Pt Level 4 (78818) Diagnoses Pure hypercholesterolemia E78.00 Elevated LFTs R79.89 Vitamin D deficiency E55.9 Glaucoma of both eyes, unspecified glaucoma type H40.9 Glaucoma type: unspecified Laterality: bilateral Anxiety F41.9 Obesity (BMI 30-39.9) E66.9 Additional Codes PHQ-9 - 72715 - PHQ-9 Billing: Yes ([id number]) Assessment & Plan Assessment & Plan (1) Pure hypercholesterolemia: Code(s): E78.00 - Pure hypercholesterolemia, unspecified Category: Medical Plan: Results of his labs done last week reviewed and discussed with patient - he is cautioned that his cholesterol levels have again increased significantly from previous Reinforced low cholesterol diet Patient reportedly switched over to a vegetarian diet back in July 2023 but has not maintained it and is now back on a regular diet Discussed again that if he cannot get them down to normal / recommended range, we will have to consider starting him on pharmacotherapy Will have him recheck his labs and fasting lipids in 4 months for follow up (2) Elevated LFTs: Code(s): R79.89 - Other specified abnormal findings of blood chemistry Category: Medical Plan: He is advised that his LFTs have increased again significantly from previous - he has been advised that this is most likely related to his weight Will send him for abdominal US for further evaluation Will also have him go and get some additional labs done for further evaluation of his elevated LFTs, including a complete hepatitis profile as well as a liver fibrosis panel Will recheck his LFTs in 4 months for follow up (3) Vitamin D deficiency: Code(s): E55.9 - Vitamin D deficiency, unspecified Category: Medical Plan: Continue Vitamin D3 2000 units QD Will recheck his Vitamin D level in 4 months for follow up (4) Glaucoma: Code(s): H40.9 - Unspecified glaucoma Category: Medical Qualifiers: Glaucoma type: unspecified Laterality: bilateral Qualified Code(s): H40.9 - Unspecified glaucoma Plan: Continue Dorzolamide 2% eye drops 1 drop into each eye BID, Combigan 0.2-0.5% 1 drop into each eye BID, Rocklatan 0.02-0.005% 1 drop into each eye QD, Pilocarpine HCl 1% 1 drop into the right eye QID and Prednisolone acetate 1% 2 drops into the left eye QD Follow up with ophthalmology at the [facility] in [place] as scheduled (5) Anxiety: Code(s): F41.9 - Anxiety disorder, unspecified Category: Medical Plan: Continue Doxepin 25 mg Q HS PRN (6) Obesity (BMI 30-39.9): Code(s): E66.9 - Obesity, unspecified Category: Medical Plan: Reinforced diet/exercise as tolerated/lose weight - he has gained some weight since his last visit Plan Follow up in 4 months Orders: Orders US abdomen complete Today R79.89 - Other specified abnormal findings of blood chemistry Liver Fibrosis Pnl Today R79.89 - Other specified abnormal findings of blood chemistry UA CC w/rflx Micro + Cult 4 Months R30.0 - Dysuria Vitamin D 25-OH Total 4 Months E55.9 - Vitamin D deficiency, unspecified Hepatitis A,B,C Profile Today R79.89 - Other specified abnormal findings of blood chemistry Gamma Glutamyl Transpeptidase Today R79.89 - Other specified abnormal findings of blood chemistry Complete Blood Count Auto Diff 4 Months D64.9 - Anemia, unspecified Comprehensive [place]. Panel Fast 4 Months E78.00 - Pure hypercholesterolemia, unspecified Lipid Panel 4 Months E78.00 - Pure hypercholesterolemia, unspecified TSH reflex Free T4 4 Months E78.00 - Pure hypercholesterolemia, unspecified
--- OUTSIDE RECORDS SUMMARY | 2024-12-13 10:46 | XMS_ITS ---
Author Name Pamela [facility] [place]. Vicki Christina Address [address] [place] [address] Phone [phone] [facility] Care Team Providers Care Crepe Sole Wire Brusher Name Role Phone Vicki Santiago Unavailable [phone] GeminiRosamaria roman Unavailable [phone] AHMED, ASEEF Unavailable [phone] Reason for Referral Not Available Allergies, adverse [...] modifier 95 for video, modifier 93 for [facility], ([place]) 04[place]13/2023 Primary open-angle glaucoma, bilateral, severe stage New patient, 30-44min 1 stable chronic or 2 minor; add modifier 95 for video, modifier 93 for [facility], [place] 04/13/2023 New patient, 30-44min 1 stable chronic or 2 minor; add modifier 95 for video, modifier 93 for [facility], ([place] 04/13/2023 New patient, 30-44min 1 stable chronic or 2 minor; add modifier 95 for video, modifier 93 for phone [facility], ([place] 04[place]13/2023 New patient, 30-44min 1 stable chronic or 2 minor; add modifier 95 for video, modifier 93 for phone [facility] ([place] 04[place]2023 New patient, 30-44min 1 stable chronic or 2 minor; add modifier 95 for video, modifier 93 for phone [facility], ([place]) 04/13/2023 New patient, 30-44min 1 stable chronic or 2 minor; add modifier 95 for video, modifier 93 for phone [facility], ([place]) 04/13/2023 Vital Signs Date of Collection Vitals 2023-04-13 08:25:32 Height - 175.26 cmWe ight - 102.06 kgBody Mass Index (BMI) - 33.23 kg/m2Pain Scale - 0.0 {score} Social History Social History Social History Observation Description Effec tive Time Current Smoking Status Never smoker 2024-11-25 0 Sex Male History of Procedures Procedures Service Procedure code Service date Servicing provider Phone# New patient, 30-44min 1 stable chronic or 2 minor; add modifier 95 for video, modifier 93 for phone [phone] No Data Available No Data Available [...] record. (1123F)Continue to see PCP. Follow-up with [facility] as needed for any acute or disease [...] had a detailed discussion with patient/caregiver about [facility] 16/02 services, their diagnosis, and medications. Patient/caregiver verbalized understanding by teach-back method. All available medications were reconciliated, counseled patient/caregiver on treatment plan, compliance, and f/u care coordination with their established PCP and specialists. Health Concerns Date Concern 2023-04-13 Patient seen using a udio and video. Patient agreed to visit via telehealth with . Introductory visit with [facility] to establish care. Today, patient has chief complaint of: establishing care.Reviewed Allergies, Medications, Active Medical conditions, past medical/surgical history, Social history. 2023-04-13 Most recent hospital stay(s) or ER visit(s) and precipitating factors: denies any visits in the last few months
== END 2024-12-13 10:51 | disposition home or self-care (01) ==
LOC: HO.HMCH 09:47
PROVIDERS: PCP Internal Medicine; Visit Provider Internal Medicine
DX: E78.00 Pure hypercholesterolemia, unspecified (principal); R79.89 Other specified abnormal findings of blood chemistry; E55.9 Vitamin D deficiency, unspecified; H40.9 Unspecified glaucoma; F41.9 Anxiety disorder, unspecified; E66.9 Obesity, unspecified; Z68.37 Body mass index [BMI] 37.0-37.9, adult

== ENCOUNTER 2025-01-31 08:22 | Outpatient (REF) | payer OTHER, SELFPAY ==
--- NOTE | ~2025-01-31 | US_ITS ---
CLINICAL HISTORY: R10.9 - Unspecified abdominal pain US abdomen complete Comparison: None Findings: Suboptimal exam due to bowel gas shadowing and limited acoustic window. The pancreas is obscured by bowel gas. The visualized mid to distal aorta and inferior vena cava are normal caliber. Proximal abdominal aorta is obscured by shadowing. The liver is normal in size, right lobe length is 13.1 cm. Normal in echogenicity, no discrete lesion is visualized in the imaged liver. No intrahepatic bile duct dilatation. The common duct is 3 mm in diameter. The gallbladder is normal. Negative sonographic Merritt sign. The main portal vein is patent with antegrade flow. The right kidney is normal, 10.5 cm in length. The left kidney is normal, 11.5 cm in length. The spleen is normal, 9.5 cm in length. No free fluid in the abdomen. Impression: No acute finding or sonographic abnormality to account for abdominal pain or abnormal LFT. This document has been electronically signed by: Julianne Burch MD on 02/01/2025 12:12:13
--- OUTSIDE RECORDS SUMMARY | 2025-01-31 08:25 | XMS_ITS ---
Author Name Pamela WILLIAN, MS. Vicki Christina Address [address] [place] [address] Phone [phone] [facility] Care Team Providers Care Associate Technician Name Role Phone Vicki Santiago Unavailable [phone] Rosamaria Singletary Unavailable [phone] AHSYLVIE, ASEEF Unavailable [phone] Reason for Referral Not Available Allergies, adverse [...] List Problem Status Onset Date Resolved Date Synopsis Primary open angle glaucoma of both eyes, severe stage Active 2023-04-13 N/A Discussed the im portance of f/u with specialist and regular eye [...] DROP INTO BOTH EYES TWICE A DAY Encounters Encounters Type Facility Date of Service Diagnosis/Co mplaint New patient, 30-44min 1 stable chronic or 2 minor; add modifier 95 for video, modifier 93 for phone [facility] Primary open-angle glaucoma, bilateral, severe stage New patient, 30-44min 1 stable chronic or 2 minor; add modifier 95 for video, modifier 93 for phone [facility] [place] 04/13/2023 New patient, 30-44min 1 stable chronic or 2 minor; add modifier 95 for video, modifier 93 for phone [facility] [place] 04/13/2023 New patient, 30-44min 1 stable chronic or 2 minor; add modifier 95 for video, modifier 93 for phone [facility] [place] 04/13/2023 New patient, 30-44min 1 stable chronic or 2 minor; add modifier 95 for video, modifier 93 for phone [facility] [place] 04/13/2023 New patient, 30-44min 1 stable chronic or 2 minor; add modifier 95 for video, modifier 93 for phone [facility] ([place]) 04/13/2023 New patient, 30-44min 1 stable chronic or 2 minor; add modifier 95 for video, modifier 93 for phone [facility] [place] 04/13/2023 Vital Signs Date of Collection Vitals 2023-04-13 08:25:32 Height - 175.26 cmWe ight - 102.06 kgBody Mass Index (BMI) - 33.23 kg/m2Pain Scale - 0.0 {score} Social History Social History Social History Observation Description Effec tive Time Current Smoking Status Never smoker 8 Sex Male History of Procedures Procedures Service Procedure code Service date Servicing provider Phone# New patient, 30-44min 1 stable chronic or 2 minor; add modifier 95 for video, modifier 93 for phone [phone] No Data Available No Data Available BMI obtained (3008F) 3008F 2023-04-13 No Data Availab le No Data Available Advance care planning discussed and documented advance care plan or surrogate decision-maker was [...] modifier 95Advance care planning discussed and documented advance care plan or surrogate decision-maker was documented in the medical record. ([id number])Continue to see PCP. Follow-up with [facility] as needed for any acute or disease [...] DAY Goals Date Goal 2023-04-13 Verbal consent oberika everett to conduct assessment, had a detailed discussion with patient/caregiver about [facility] 16/02 services, their diagnosis, and medications. Patient/caregiver verbalized understanding by teach-back method. All available medications were reconciliated, counseled patient/caregiver on treatment plan, compliance, and f/u care coordination with their established PCP and specialists. Health Concerns Date Concern 2023-04-13 Patient seen using a udio and video. Patient agreed to visit via telehealth with . Introductory visit with [facility] to establish care. Today, patient has chief complaint of: establishing care.Reviewed Allergies, Medications, Active Medical conditions, past medical/surgical history, Social history. 2023-04-13 Most recent hospital stay(s) or ER visit(s) and precipitating factors: denies any visits in the last few months
== END 2025-01-31 08:23 | disposition home or self-care (01) ==
LOC: HO.US 08:22
PROVIDERS: PCP Internal Medicine; Visit Provider Internal Medicine
DX: R79.89 Other specified abnormal findings of blood chemistry (principal)
CPT/HCPCS: 76700

== ENCOUNTER → 2025-01-31 08:24 | Outpatient (BNV) | payer OTHER, SELFPAY | PROVIDERS: PCP Internal Medicine; Visit Provider Radiology Diagnostic Radiology | DX: R10.9 Unspecified abdominal pain (principal) | CPT/HCPCS: 76700 ==

== ENCOUNTER 2025-04-17 13:24 | Outpatient (AMB) | payer OTHER, SELFPAY ==
--- NOTE | 2025-04-17 13:34 | A.OFFPC_ITS ---
Vital Signs 04/17/25 13:37 Height 5 ft 10 in Weight 249 lb 4 oz BMI 35.8 BP 130/80 Blood Pressure Location Lt brachial Position Sitting Pulse 69 Pulse Source Pulse Oximeter Temp 97.3 F Temp Source Temporal Artery Scan Pulse Oximetry (%) 95 Oxygen Delivery Method Room Air Intake Visit Reasons: elevated LFTs, hyperlipidemia, glaucoma Intake Note: Patient is here to follow up on Elevated LFTs, HLD, Glaucoma. Nutritional Yeast Supervisor Required: No Resident Services Supervisor: Not Required per policy Accompanied by: Self / Same As Patient Allergies No Known Allergies Allergy (Verified 04/17/25 14:18) Medication List - Last Reconciled 04/17/25 by Geovanny Suazo MD brimonidine-timolol 0.2-0.5 % (Combigan) 1 drp ophthalmic (eye) BID cholecalciferol (vitamin D3) 50 mcg PO DAILY 90 days dorzolamide 2% 1 drp ophthalmic (eye) BID doxepin 25 mg PO BEDTIME netarsudil-latanoprost 0.02-0.005 % (Rocklatan) 1 drp ophthalmic (eye) DAILY pilocarpine HCl 1% 1 drp ophthalmic (eye) QID prednisolone acetate 1% 2 drps ophthalmic (eye) .QD Tobacco use date assessed: 04/17/25 Dental Screening Dental Screen Date: 12/13/24 HPI elevated LFTs, hyperlipidemia, glaucoma HPI Details Patient comes in today for his follow up visit States that he feels okay He denies any headaches or dizziness Denies any chest pains, no SOB No nausea/vomiting, no abdominal pain No change in bowel habits noted Needs his Vitamin D Rx refilled He was not able to get his labs done before coming in for his appointment today He would also like to know how his abdominal US done in January 2025 came out [facility] Medical History Vitamin D deficiency Pure hypercholesterolemia Anxiety Colon cancer screening Elevated LFTs Obesity (BMI 30-39.9) Elevated blood pressure reading Surgical History Hx of colonoscopy (~01/22/21) Hx of lumbar discectomy (~2000) Status post glaucoma surgery (~05/02/20) History of trabeculectomy (~08/24/19) Family History Mother Hypertension Social History Household Members Other:: Housing: Apartment Alcohol intake: current Alcohol intake frequency: holidays/special occasions only Patient Tobacco Use Status: Never used Tobacco e-Cigarette/Vaping Use: Never Used Second Hand Smoke Exposure: Yes service: No Current occupational status: retired and disabled Cognitive needs: No Hearing needs: No Vision needs: No Questionnaire PHQ-9 Over the last 2 weeks, how often have you been bothered by any of the following problems? Depression Screening Interpretation: Negative Depression Screening Done: Yes Source: Developed by Drs. Mio Cochran, Christelle Frank, Fransisco Spicer and colleagues, with an educational stephanie from [employer]. Thrive Questionnaire Date Thrive assessed: 12/13/24 I am a: Patient What is your living situation today?: I have a steady place to live Within the past 12 months, did the food you bought not last and you didn't have the money to get more?: Never true Within the past 12 months, did you worry whether your food would run out before you got money to buy more?: Never true Do you have trouble paying for medicines?: No Do you have trouble getting transportation to medical appointments?: No Do you have trouble paying your heating and electricity bill?: No Do you have trouble taking care of your child, family member or friend?: No Do you have trouble with day-to-day activities such as bathing, preparing meals, shopping, managing finances, etc.?: No Are you currently unemployed and looking for a job?: No Are you interested in more education?: I choose not to answer this question Currently or been in a relationship where the following occur: No concerns reported THRIVE Score: 0 JODIE-7 AMB Questionnaire JODIE-7 Date JODIE - 7 assessed: 12/13/24 Source: Developed by Drs. Mio Cochran, Christelle Frank, Fransisco Spicer and colleagues, with an educational stephanie from [employer]. Review of Systems Const Denies chills, Denies fatigue, Denies fever(s) and Denies headache(s) Eyes Reports blurry vision ENT Denies dysphagia, Denies dizziness, Denies otalgia, Denies headache(s), Denies neck pain, Denies odynophagia and Denies sore throat Card Denies chest pain, Denies palpitations and Denies dyspnea Resp Denies cough, Denies dyspnea and Denies wheezing GI Denies abdominal pain, Denies constipation, Denies dysphagia, Denies heartburn, Denies diarrhea, Denies nausea, Denies odynophagia and Denies vomiting Denies difficulty urinating, Denies dysuria, Denies nocturia and Denies urinary frequency Musc Denies back pain and Denies neck pain Skin/Breast Denies rash Neuro Denies dizziness and Denies headache(s) Psych Denies anxiety Endo Denies fatigue and Denies palpitations Aller/Immun Denies wheezing Physical exam (Primary Care) Vital Signs: Last Vital Signs Temp 97.3 F 04/17/25 13:37 Pulse 69 04/17/25 13:37 BP 130/80 04/17/25 13:37 Pulse Ox 95 04/17/25 13:37 Oxygen Delivery Method Room Air 04/17/25 13:37 BMI result Body Mass Index 35.8 Tobacco/Smoking Status: Tobacco use Status Tobacco use date assessed 04/17/25 04/17/25 13:43 Patient Tobacco Use Status Never used Tobacco 04/17/25 13:35 e-Cigarette/Vaping Use Never Used 04/17/25 13:35 Depression Screening Interpretation: Negative Thrive Assessment: Date of Thrive Assessment Date Thrive assessed 12/13/24 04/17/25 13:35 Currently or been in a relationship where the following occur: No concerns reported Const General: no acute distress and alert HENMT Ears: TM's normal bilaterally and EAC's normal Throat: Yes posterior oropharynx normal and Yes tonsils normal (no TP congestion) Neck Neck: Yes supple and No lymphadenopathy Thyroid: Thyroid normal Resp Auscultation: clear to auscultation bilaterally, no rales and no wheezes Cardio Rate: regular rate Rhythm: regular rhythm Heart sounds: no murmurs GI Palpation (GI): Soft to palpation and nontender Auscultation: normal bowel sounds General: Yes no CVA tenderness Back/Spine/Pelvis Back: no CVA tenderness Thoracic/Lumbar Spine: No lumbar spinal tenderness Skin Rashes: no rashes Extrem General: Yes no clubbing, cyanosis or edema Results Reviewed Results Reviewed: Laboratory Tests 12/05/24 12/05/24 12/13/24 12:07 12:10 11:05 WBC 3.3 L Hgb 15.3 Hct 45.7 Plt Count 177 Sodium 140 Potassium 3.9 Creatinine 1.01 Estimated GFR > 60 Fasting Glucose 80 Calcium 9.5 Total Bilirubin 0.6 GGT 223 H AST 56 H ALT 108 H Liver GGT 174 H Liver Apolipoprotein A1 180 H Liver Fibrosis ALT 77 H Liver Fibrosis Score 0.48 Liver Fibrosis Stage F2 Triglycerides 79 Cholesterol 264 H LDL Cholesterol, Calc 195 H HDL Cholesterol 54 PSA Screen 0.74 25-OH Vitamin D Total 15.7 L TSH 1.50 Ur Specific [place] 1.020 Urine Protein Negative Urine Glucose (UA) Negative Urine Blood Negative Urine Nitrite Negative Ur Leukocyte Esterase Negative Hepatitis A IgM Ab Nonreactive Hep Bs Antigen Negative Hep Bs Antibody NONREACTIVE Hep B Core Total Ab Nonreactive Hepatitis C Ab (EIA) Nonreactive Coding Level of Care Code Est Pt Level 4 (96458) Diagnoses Pure hypercholesterolemia E78.00 Elevated LFTs R79.89 Vitamin D deficiency E55.9 Glaucoma of both eyes, unspecified glaucoma type H40.9 Glaucoma type: unspecified Laterality: bilateral Anxiety F41.9 Obesity (BMI 30-39.9) E66.9 Assessment & Plan Assessment & Plan (1) Pure hypercholesterolemia: Code(s): E78.00 - Pure hypercholesterolemia, unspecified Category: Medical Plan: Results of his labs done back in November 2024 reviewed and discussed with patient - he is cautioned that his cholesterol levels have again increased significantly from previous and his LDL cholesterol is now at 195 mg/dl Reinforced low cholesterol diet Patient reportedly switched over to a vegetarian diet back in July 2023 but he has not been able to maintain it and is now back on his regular diet Have advised patient again that if he cannot get his cholesterol levels down into the recommended range, we will have to consider starting him on pharmacotherapy Will have him recheck his cholesterol levels again in a few months for follow up (2) Elevated LFTs: Code(s): R79.89 - Other specified abnormal findings of blood chemistry Category: Medical Plan: His LFTs have increased again significantly from previous Abdominal US done a couple of months ago in January 2025 came out with no acute finding or sonographic abnormality to account for his abnormal LFTs His hepatitis profile came back negative but his liver fibrosis panel revealed a liver fibrosis score of 0.48, fibrosis stage at F2 GGTP was also significantly elevated Will send him for additional labs to check for Mononucleosis, EBV, Lyme and CMV Will also refer him to GI for further evaluation and management (3) Vitamin D deficiency: Code(s): E55.9 - Vitamin D deficiency, unspecified Category: Medical Plan: Continue Vitamin D3 2000 units QD - Rx refilled (4) Glaucoma: Code(s): H40.9 - Unspecified glaucoma Category: Medical Qualifiers: Glaucoma type: unspecified Laterality: bilateral Qualified Code(s): H40.9 - Unspecified glaucoma Plan: Continue Dorzolamide 2% eye drops 1 drop into each eye BID, Combigan 0.2-0.5% 1 drop into each eye BID, Rocklatan 0.02-0.005% 1 drop into each eye QD, Pilocarpine HCl 1% 1 drop into the right eye QID and Prednisolone acetate 1% 2 drops into the left eye QD Follow up with ophthalmology at the [facility] in [place] as scheduled (5) Anxiety: Code(s): F41.9 - Anxiety disorder, unspecified Category: Medical Plan: Continue Doxepin 25 mg Q HS PRN (6) Obesity (BMI 30-39.9): Code(s): E66.9 - Obesity, unspecified Category: Medical Plan: Reinforced diet/exercise as tolerated/lose weight - he has been able to lose some weight since his last visit Plan Follow up in 6 to 8 weeks Orders: Orders Monotest 04/17/25 - Other specified abnormal findings of blood chemistry Deirdre-Davis Virus Profile 04/17/25 - Other specified abnormal findings of blood chemistry Lyme IgG/IgM w/reflex to WB 04/17/25 - Other specified abnormal findings of blood chemistry Cytomegalovirus Ab (IgG, IgM) 04/17/25 - Other specified abnormal findings of blood chemistry Referrals Gastroenterology Referral - Other specified abnormal findings of blood chemistry, K74.00 - Hepatic fibrosis, unspecified Medications: Refilled cholecalciferol (vitamin D3) 50 mcg PO DAILY 90 caps 3RF 90 days E55.9 - Vitamin D deficiency, unspecified
[2025-04-17 13:37] VITALS: BP 130/80; PULSE 69; TEMP 36.3; O2SAT 95; BMI 35.8
--- OUTSIDE RECORDS SUMMARY | 2025-04-17 15:46 | XMS_ITS | Clinical Summary ---
Author Organization [facility] Address [address] [address] Phone Support Name Relationship Address Phone [phone]
== END 2025-04-17 14:43 | disposition home or self-care (01) ==
LOC: HO.HMCH 13:25
PROVIDERS: PCP Internal Medicine; Visit Provider Internal Medicine
DX: E78.00 Pure hypercholesterolemia, unspecified (principal); R79.89 Other specified abnormal findings of blood chemistry; E66.9 Obesity, unspecified; Z68.35 Body mass index [BMI] 35.0-35.9, adult; E55.9 Vitamin D deficiency, unspecified; H40.9 Unspecified glaucoma; F41.9 Anxiety disorder, unspecified

== ENCOUNTER → 2025-04-17 13:24 | Outpatient (BNVA) | payer OTHER, SELFPAY | PROVIDERS: PCP Internal Medicine; Visit Provider Internal Medicine | DX: E78.00 Pure hypercholesterolemia, unspecified (principal); R79.89 Other specified abnormal findings of blood chemistry; E55.9 Vitamin D deficiency, unspecified; H40.9 Unspecified glaucoma; F41.9 Anxiety disorder, unspecified; E66.9 Obesity, unspecified; Z68.35 Body mass index [BMI] 35.0-35.9, adult; Z79.899 Other long term (current) drug therapy | CPT/HCPCS: 99212 ==

== ENCOUNTER 2025-06-01 09:14 | Outpatient (REF) | payer OTHER, SELFPAY ==
[2025-06-01 09:35] LABS: MANUAL DIFF FLAG NO
[2025-06-01 09:47] LABS: Hematocrit 47.3 % (42.0-52.0); Hemoglobin 15.7 g/dl (14.0-18.0); Imm Gran Abs Auto 0.01 X10*3/uL (0.00-0.03); Imm Gran Pct Auto 0.3 % (0.0-0.4); Lymphocytes Absolute Auto 1.2 X10*3/uL (1.2-4.9); Mean Corpuscular HGB Conc 33.2 g/dl (31.0-36.0); Mean Corpuscular Hemoglobin 28.5 pg (27.0-33.0); Mean Corpuscular Volume 86.0 fL (80.0-98.0); NRBC Abs Auto 0.000 X10*3/uL (0.0-0.012); NRBC Pct Auto 0.0 /100WBC (0.0-0.2); Platelet Count 159 X10*3/uL (160-400); Red Blood Count 5.50 X10*6/uL (4.60-5.80); White Blood Count 3.5 X10*3/uL (4.8-10.8)
--- OUTSIDE RECORDS SUMMARY | 2025-06-01 10:11 | XMS_ITS ---
Author Name Pamela WILLIAN, MS. Vicki Christina Address [address] [place] [address] Phone [phone] [facility] Care Team Providers Care Forensic Identification Specialist Name Role Phone Vicki Santiago Unavailable [phone] Rosamaria Singletary Unavailable [phone] AHSYLVIE, ASEEF Unavailable [phone] Reason for Referral Not Available Allergies, adverse [...] 95 for video, modifier 93 for phone [facility] Primary open-angle glaucoma, bilateral, severe stage New patient, 30-44min 1 stable chronic or 2 minor; add modifier 95 for video, modifier 93 for phone [facility] [place] 04/13/2023 New patient, 30-44min 1 stable chronic or 2 minor; add modifier 95 for video, modifier 93 for phone [facility] [place] 04/13/2023 New patient, 30-44min 1 stable chronic or 2 minor; add modifier 95 for video, modifier 93 for phone [facility] [place] 04/13/2023 New patient, 30-44min 1 stable chronic or 2 minor; add modifier 95 for video, modifier 93 for phone [facility] [place] 04/13/2023 New patient, 30-44min 1 stable chronic or 2 minor; add modifier 95 for video, modifier 93 for phone [facility] 04/13/2023 New patient, 30-44min 1 stable chronic or 2 minor; add modifier 95 for video, modifier 93 for phone [facility] [place] 04/13/2023 Vital Signs Date of Collection Vitals 2023-04-13 08:25:32 Height - 175.26 cmWe ight - 102.06 kgBody Mass Index (BMI) - 33.23 kg/m2Pain Scale - 0.0 {score} Social History Social History Social History Observation Description Effec tive Time Current Smoking Status Never smoker 6 Sex Male History of Procedures Procedures Service Procedure code Service date Servicing provider Phone# New patient, 30-44min 1 stable chronic or 2 minor; add modifier 95 for video, modifier 93 for phone [phone] No Data Available No Data Available [...] had a detailed discussion with patient/caregiver about [facility] 16/02 services, their diagnosis, and medications. Patient/caregiver verbalized understanding by teach-back method. All available medications were reconciliated, counseled patient/caregiver on treatment plan, compliance, and f/u care coordination with their established PCP and specialists. Health Concerns Date Concern 2023-04-13 Patient seen using a udio and video. Patient agreed to visit via telehealth with . Introductory visit with [facility] to establish care. Today, patient has chief complaint of: establishing care.Reviewed Allergies, Medications, Active Medical conditions, past medical/surgical history, Social history. 2023-04-13 Most recent hospital stay(s) or ER visit(s) and precipitating factors: denies any visits in the last few months
--- OUTSIDE RECORDS SUMMARY | 2025-06-01 10:11 | XMS_ITS | Encounter Summary ---
Author Organization [facility] Address [address] [facility] [address] [place] [address] Phone Care Team Providers Care Maintenance Trainer Name Role Phone Geovanny Suazo MD Primary Care Provider [phone] Geovanny Suazo MD Primary Care Provider [phone] Roxann Steward MD Primary Care Provider Geovanny Suazo MD Primary Care Provider [phone] Encounter Details Date Type Department Care Team (Late st Contact Info) Description 11/07/2020 Procedure Pass [facility] PERIOP DEPT [address] [place] [address] Social History Tobacco Use Types Packs/Day Years Used Date Smoking Tobacco: Never Smokeless Tobacco: Never Alcohol Use Standard Drinks/Week Comments Not Currently 0 (1 standard drink = 0.6 oz pur e alcohol) Sex and Gender Information Value Date Recorded Sex Assigned at Not on file Legal Sex Male 1:51 PM EST Gender Identity Not on file Sexual Orientation Not on file documented as of this encounter Plan of Treatment Upcoming Encounters Date Type Department Care Team (Late st Contact Info) Description 08/29/2025 10:00 AM EST Procedure visit [facility] in [address] [address] 08/29/2025 10:30 AM EST Office Visit [facility] in [address] [address] Mague Ruff MD [address] [place] [address], [address] [place] [address] 09/05/2025 11:15 AM EST Office Visit [facility] in [address] [address] Rosamaria Singletary MD [address] [facility], [address] [place] [address] [email or web address] documented as of this encounter Visit Diagnoses Not on filedocumented in this encounter Care Teams Maintenance Trainer Relationship Specialty Start Date End Date Geovanny Suazo MD [address] [place] [address] [place] [address] PCP - General Internal Medicine 05/17/20 04/14/22 Geovanny Suazo MD [address] [place] [address] [place] [address] PCP - General Internal Medicine 04/15/22 04/28/22 Roxann Steward MD [address] [place] [id number] [email or web address] PCP - General Family Medicine 05/01/22 10/13/22 Geovanny Suazo MD [address] [place] [address] [place] [address] PCP - General Internal Medicine 10/14/22 documented as of this encounter Additional Source Comments The information contained in this document represents components of the legal health record. It is not the complete legal health record.[facility]
--- OUTSIDE RECORDS SUMMARY | 2025-06-01 10:11 | XMS_ITS | Encounter Summary ---
Author Organization [facility] Address [address] [facility] [address] [place] [address] Phone Care Team Providers Care Human Performance Technologist Name Role Phone Geovanny Suazo MD Primary Care Provider [phone] Geovanny Suazo MD Primary Care Provider [phone] Roxann Steward MD Primary Care Provider Geovanny Suazo MD Primary Care Provider [phone] Encounter Details Date Type Department Care Team (Late st Contact Info) Description 12/17/2020 Procedure Pass [facility] [place] PERIOP DEPT [address] [place] [id number] Social History Tobacco Use Types Packs/Day Years [...] AM EST Procedure visit [facility] in [address] [address] 08/29/2025 10:30 AM EST Office Visit [facility] in [address] [address] Mague Ruff MD [address] [place] [address], [address] [place] [address] 09/05/2025 11:15 AM EST Office Visit [facility] in [address] [address] Rosamaria Singletary MD [address] [facility], [address] [place] [address] [email or web address] documented as of this encounter Visit Diagnoses Not on filedocumented in this encounter Care Teams Human Performance Technologist Relationship Specialty Start Date End Date Geovanny Suazo MD [address] [place] [address] [place] [address] PCP - General Internal Medicine 05/17/20 04/14/22 Geovanny Suazo MD [address] [place] [address] [place] [address] PCP - General Internal Medicine 04/15/22 04/28/22 Roxann Steward MD [address] [place] [id number] [email or web address] PCP - General Family Medicine 05/01/22 10/13/22 Geovanny Suazo MD [address] [place] [address] [place] [address] PCP - General Internal Medicine 10/14/22 documented as of this encounter Additional Source Comments The information contained in this document represents components of the legal health record. It is not the complete legal health record.[facility]
--- OUTSIDE RECORDS SUMMARY | 2025-06-01 10:11 | XMS_ITS | Clinical Summary ---
Author Organization [facility] Address [address] [place] [address] Phone Care Team Providers Care [employer] Consultant Name Role Phone Geovanny Suazo MD Primary Care Provider [phone] [phone] Allergies Active Allergy Reactions Criticality Noted Date Comments Ragweed Other (See Comments) Low 08/24/2019 Runny nose Medications doxepin (SINEQUAN) 25 MG capsule Take 25 mg by mouth nightly at bedtime. 08/09/2019 Active prednisoLONE acetate (PRED FORTE) 1 % ophthalmic suspension PLACE 1 DROP INTO THE LEFT EYE DAILY. SHAKE 30X 15 mL 1 09/28/2024 Active brimonidine-joaquin olol (COMBIGAN) 0.2-0.5 % ophthalmic solutionIndicat ions:Primary open angle glaucoma of both eyes, severe stage Place 1 drop into each eye 2 (two) times a day. 30 mL 4 04/04/2025 Active dorzolamide (TRUSOPT) 2 % ophthalmic solutionIndicat ions:Primary open angle glaucoma of both eyes, severe stage Place 1 drop into each eye 2 (two) times a day. 30 mL 5 04/04/2025 Active netarsudiL-jenae noprost (ROCKLATAN) 0.02-0.005 % DropIndications :Primary open angle glaucoma of both eyes, severe stage Place 1 drop into each eye daily. 2.5 mL 12 04/04/2025 Active pilocarpine (ISOPTO CARPINE) 1 % ophthalmic solutionIndicat ions:Primary open angle glaucoma of both eyes, severe stage Place 1 drop into the right eye 4 (four) times a day. 15 mL 12 04/04/2025 Active Active Problems Problem Noted Date Diagnosed Date Anxiety 11/16/2020 Combined forms of age-related cataract of right eye Primary open angle glaucoma (POAG) of right eye, indeterminate stage Primary open angle glaucoma (POAG) of left eye, indeterminate stage Encounters Date Type Department Care Team Description 05/02/2025 11:30 AM EDT Office Visit [facility] in [address] [address] Rosamaria Singletary MD Chronic iritis (Primary Dx); Primary open angle glaucoma of both eyes, severe stage 04/04/2025 9:15 AM EDT Office Visit [facility] in [address] [address] Mague Ruff MD Primary open angle glaucoma of both eyes, severe stage (Primary Dx) 03/31/2025 Refill [facility] [address] [address] Mague Ruff MD Medication Refill 03/17/2025 Refill [facility] in [address] [address] Shaka Castro MD Medication Refill from Last 3 Months Family History Medical History Relation Comments Glaucoma Neg Hx Social History Tobacco Use Types Packs/Day Years Used Date Smoking Tobacco: Never Smokeless Tobacco: Never Tobacco Cessation:Counseling Given: Not Answered Alcohol Use Standard Drinks/Week Comments Yes 0 (1 standard drink = 0.6 oz pur e alcohol) socally Education Answer Date Recorded Are you interested in more education? Not on zeb e 11/21/2022 Are you concerned about learning? Not on file 11/21/2022 No 11/21/2022 No 11/21/2022 Digital Access Answer Date Recorded No 12/20/2022 No 12/20/2022 Reliable internet access at home? Not on file 12/20/2022 Device with a working camera? Not on file Sex and Gender Information Value Date Recorded Sex Assigned at Not on file Legal Sex Male 1:51 PM EST Gender Identity Not on file Sexual Orientation Not on file Last Filed Vital Signs Vital Sign Reading Time Taken Comments Blood Pressure 159/95 06/06/2022 11:15 AM EST Pulse 56 06/06/2022 11:30 AM EST Temperature 36 C (96.8 F) 06/06/2022 6:58 AM EST Respiratory Rate 17 06/06/2022 11:30 AM EST Oxygen Saturation 97% 06/06/2022 11:30 AM EST Inhaled Oxygen Concentration - - Weight 106.1 kg (234 lb) 06/06/2022 6:58 AM EST Height 175.3 cm (5' 9 ) 06/06/2022 6:58 AM EST Body Mass Index 34.56 06/06/2022 6:58 AM EST Plan of Treatment Upcoming Encounters Date Type Department Care Team (Late st Contact Info) Description 08/29/2025 10:00 AM EST Procedure visit [facility] in [address] [address] 08/29/2025 10:30 AM EST Office Visit [facility] in [address] [address] Mague Ruff MD [address] [place] [address], [address] [address] 09/05/2025 11:15 AM EST Office Visit [facility] in [address] [address] Rosamaria Singletary MD [address] [place] [address], [address] [place] [id number] [email or web address] Health Maintenance Due Date Last Done Comments Adult Td,Tdap Booster 1970 LIPID PANEL 1970 DEPRESSION SCREENING 1982 HEPATITIS C SCREENING 1988 HIV ONE-TIME SCREENING (18-6 5 YEARS) 1988 COLOGUARD 2015 COLONOSCOPY 2015 COLORECTAL CANCER SCREENING 2015 FIT TEST 2015 FOBT 2015 SIGMOIDOSCOPY 2015 VIRTUAL COLONOSCOPY 2015 PNEUMOCOCCAL VACCINES (50+ y ears) (1 of 1 - PCV) 2020 ZOSTER VACCINES (1 of 2) 2020 SCREENING FOR DIABETES 12/05/2023 12/04/2020 INFLUENZA VACCINE (#1) 2025 COVID-19 VACCINE (2 - 2024-2 6 season) 2025 11/19/2020 RSV VACCINE (1 - 1-dose 75+ series) 2045 SMOKING STATUS SCREENING (On ce After 26 Yrs) Completed 04/04/2025 HEPATITIS A VACCINES Aged Out No long er eligible based on patient's age to complete this topic HIB VACCINES Aged Out No longer eligi ble based on patient's age to complete this topic MENINGOCOCCAL VACCINES (ACWY) Aged Out No longer eligible based on patient's age to complete this topic MENINGOCOCCAL VACCINES (B) Aged Out N o longer eligible based on patient's age to complete this topic Medical Devices Implanted Type Area Pattern Developer Device Identifier Shelf Expiration Date Model / Serial / Lot Lens Intraocular Sofport Li61ao 21.0d - [id number] Implanted:Qty: 1 on 11/07/2020 by Mague Ruff MD at [facility] Right: Eye BAUSCH 09/23/2022 [id number] / [id number] / Graft Allograft 9mm Tanzgraft Spilt Thickness [employer] - [id number] Implanted:Qty: 1 on 11/07/2020 by Mague Ruff MD at [facility] Right: Eye [employer] 08/28/2022 [id number] / [id number] / Implant Baerveldt 350mm - [id number] Implanted:Qty: 1 on 11/07/2020 by Mague Ruff MD at [facility] Right: Eye A M O SALES 02/23/2022 [id number] / [id number] / Lens Intraocular Sofport Li61ao 21.0d - [id number] Implanted:Qty: 1 on 06/06/2022 by Mague Ruff MD at [facility] Left: Eye BAUSCH 12/24/2026 [id number] / [id number] / Insurance [facility] CARE MEDICARE REPLACEMENT JERRY ZELAYA [id number] Advance Directives For more information, please contact: [phone] (9AM - 5PM [facility], Thursday-Thursday) Documents on File Type Date Recorded Patient In Mold Coater Expl anation Healthcare Proxy 11/19/2020 Care Teams [employer] Consultant Relationship Specialty Start Date End Date Geovanny Suazo MD [address] [place] [address] [facility] [address] PCP - General Internal Medicine 10/14/22 Additional Source Comments The information contained in this document represents components of the legal health record. It is not the complete legal health record.[facility]
--- OUTSIDE RECORDS SUMMARY | 2025-06-01 10:11 | XMS_ITS | Encounter Summary ---
Author Organization [facility] Address [address] [place] [address] Phone Care Team Providers Care Telephone Appointment Clerk Name Role Phone Geovanny Suazo MD Primary Care Provider [phone] [phone] Geovanny Suazo MD Primary Care Provider [phone] Roxann Steward MD Primary Care Provider Geovanny Suazo MD Primary Care Provider [phone] [phone] Encounter Details Date Type Department Care Team (Late st Contact Info) Description 11/16/2020 Procedure Pass KYLEE LW PERIOP DEPT [address] [facility] [place] [address] Social History Tobacco Use Types Packs/Day Years [...] AM EST Procedure visit [facility] in [address] [address] 08/29/2025 10:30 AM EST Office Visit [facility] in [address] [address] Mague Ruff MD [address] [place] [address], [address] [place] [address] 09/05/2025 11:15 AM EST Office Visit [facility] in [address] [address] Rosamaria Singletary MD [address], [address] [place] [address] [email or web address] documented as of this encounter Visit Diagnoses Not on filedocumented in this encounter Care Teams Telephone Appointment Clerk Relationship Specialty Start Date End Date Geovanny Suazo MD [address] [place] [address] [place] [address] PCP - General Internal Medicine 05/17/20 04/14/22 Geovanny Suazo MD [address] [place] [address] [place] [address] PCP - General Internal Medicine 04/15/22 04/28/22 Roxann Steward MD [address] [place] [address] [email or web address] PCP - General Family Medicine 05/01/22 10/13/22 Geovanny uSazo MD [address] [place] [address] [place] [address] PCP - General Internal Medicine 10/14/22 documented as of this encounter Additional Source Comments The information contained in this document represents components of the legal health record. It is not the complete legal health record.[facility]
--- OUTSIDE RECORDS SUMMARY | 2025-06-01 10:11 | XMS_ITS | Encounter Summary ---
Author Organization [facility] Address [address] [place] [address] Phone Care Team Providers Care Commiss[employer] Steward Name Role Phone Roxann Steward MD Primary Care Provider Geovanny Suazo MD Primary Care Provider [phone] [phone] Encounter Details Date Type Department Care Team (Late st Contact Info) Description 06/06/2022 Procedure Pass [facility]YLE[facility] LW PERIOP DEPT [address] [place] [address] Social History Tobacco Use Types Packs/Day Years Used Date Smoking Tobacco: Never Smokeless Tobacco: Never Alcohol Use Standard Drinks/Week Comments Yes 0 (1 standard drink = 0.6 oz pur e alcohol) socally Sex and Gender Information Value Date Recorded Sex Assigned at Not on file Legal Sex Male 1:51 PM EST Gender Identity Not on file Sexual Orientation Not on file documented as of this encounter Plan of Treatment Upcoming Encounters Date Type Department Care Team (Late st Contact Info) Description 08/29/2025 10:00 AM EST Procedure visit [facility] in [address] [address] 08/29/2025 10:30 AM EST Office Visit [facility] in [address] [address] Mague Ruff MD [address] [place] [address], [facility] [address] [place] [address] 09/05/2025 11:15 AM EST Office Visit [facility] in [address] [place] [address] [address] Rosamaria Singletary MD [address], [address] [place] [address] [email or web address] documented as of this encounter Visit Diagnoses Not on filedocumented in this encounter Care Teams Commissary Steward Relationship Specialty Start Date End Date Roxann Steward MD [address] [place] [address] [email or web address] PCP - General Family Medicine 05/01/22 10/13/22 Geovanny Suazo MD [address] [place] [address] [place] [address] PCP - General Internal Medicine 10/14/22 documented as of this encounter Additional Source Comments The information contained in this document represents components of the legal health record. It is not the complete legal health record.[facility]
[2025-06-01 10:34] LABS: Alanine Aminotransferase 161 U/L (0-40); Albumin Level 4.6 g/dL (3.5-5.0); Alkaline Phosphatase 78 U/L (39-117); Anion Gap 9 (12-20); Aspartate Amino Transferase 78 U/L (5-37); Blood Urea Nitrogen 16 mg/dL (9-16); Calcium 9.2 mg/dL (8.4-10.2); Carbon Dioxide 29 mmol/L (22-29); Chloride 108 mmol/L (96-108); Cholesterol 246 mg/dL (<200); Estimated Glomerular Filt Rate > 60; HDL Cholesterol 55 mg/dL (>40); Potassium 4.0 mmol/L (3.3-5.1); Sodium 142 mmol/L (135-145); Total Protein 7.9 g/dL (6.5-8.0); Triglycerides 84 mg/dL (<150)
[2025-06-01 10:39] LABS: Appearance Urine Clear; Glucose Urine UA Negative (Negative); PH 5.5 (5.0-9.0); Specific Gravity - Urine 1.025 (1.005-1.025)
[2025-06-02 06:28] LABS: EBV-NA IgG Index 77.50 U/mL; EBV-VCA IgG Ab >750.00 U/mL; EBV-VCA IgM Ab <36.00 U/mL; Lyme Abs Screen <0.90 index
== END 2025-06-01 09:15 | disposition home or self-care (01) ==
LOC: HO.LAB 09:14
PROVIDERS: PCP Internal Medicine; Visit Provider Internal Medicine
DX: Z01.84 Encounter for antibody response examination (principal); R79.89 Other specified abnormal findings of blood chemistry; E55.9 Vitamin D deficiency, unspecified; E78.00 Pure hypercholesterolemia, unspecified; R30.0 Dysuria; D64.9 Anemia, unspecified
CPT/HCPCS: 36415; 80053; 80061; 81003; 82306; 84443; 85025; 86308; 86617; 86618; 86644; 86645; 86664; 86665

== ENCOUNTER 2025-06-06 11:03 | Outpatient (AMB) | payer OTHER, SELFPAY ==
[2025-06-06 11:08] VITALS: BP 140/96; PULSE 60; O2SAT 98; BMI 37.4
--- NOTE | 2025-06-06 11:08 | A.OFFPC_ITS ---
Vital Signs 06/06/25 11:08 Height 5 ft 10 in Weight 261 lb BMI 37.4 BP 140/96 H Blood Pressure Location Lt brachial Position Sitting Pulse 60 Pulse Source Pulse Oximeter Pulse Oximetry (%) 98 Oxygen Delivery Method Room Air Intake Visit Reasons: elevated LFTs, liver fibrosis, follow up labs Mechanics Supervisor Required: No Accompanied by: Self / Same As Patient Allergies No Known Allergies Allergy (Verified 06/06/25 11:45) Medication List - Last Reconciled 06/06/25 by Geovanny Suazo MD brimonidine-timolol 0.2-0.5 % (Combigan) 1 drp ophthalmic (eye) BID cholecalciferol (vitamin D3) 50 mcg PO DAILY 90 days dorzolamide 2% 1 drp ophthalmic (eye) BID doxepin 25 mg PO BEDTIME netarsudil-latanoprost 0.02-0.005 % (Rocklatan) 1 drp ophthalmic (eye) DAILY pilocarpine HCl 1% 1 drp ophthalmic (eye) QID prednisolone acetate 1% 2 drps ophthalmic (eye) .QD Tobacco use date assessed: 06/06/25 Dental Screening Dental Screen Date: 06/06/25 Did you have a dental visit in the last 12 months?: Yes Did you have a dental problem in the last 6 months where you did not have access to dental care?: No Was dental information given to patient?: Patient has dentist HPI elevated LFTs, liver fibrosis, follow up labs HPI Details Patient comes in today for his follow up visit States that he feels okay He denies any headaches or dizziness Denies any chest pains, no SOB No nausea/vomiting, no abdominal pain No change in bowel habits noted He had his follow-up labs done a few days ago - to discuss his results [facility] Medical History Vitamin D deficiency Pure hypercholesterolemia Anxiety Colon cancer screening Elevated LFTs Obesity (BMI 30-39.9) Elevated blood pressure reading Surgical History Hx of colonoscopy (~01/22/21) Hx of lumbar discectomy (~2000) Status post glaucoma surgery (~05/02/20) History of trabeculectomy (~08/24/19) Family History Mother Hypertension Social History Household Members Other:: Housing: Apartment Alcohol intake: current Alcohol intake frequency: holidays/special occasions only Patient Tobacco Use Status: Never used Tobacco e-Cigarette/Vaping Use: Never Used Second Hand Smoke Exposure: Yes service: No Current occupational status: retired and disabled Cognitive needs: No Hearing needs: No Vision needs: No Questionnaire PHQ-9 Over the last 2 weeks, how often have you been bothered by any of the following problems? 1. Little interest or pleasure in doing things: not at all 2. Feeling down, depressed, or hopeless: not at all 3. Trouble falling or staying asleep, or sleeping too much: not at all 4. Feeling tired or having little energy: not at all 5. Poor appetite or overeating: not at all 6. Feeling bad about yourself - or that you are a failure or have let yourself or your family down: not at all 7. Trouble concentrating on things, such as reading the newspaper or watching television: not at all 8. Moving or speaking so slowly that other people could have noticed. Or the opposite - being so fidgety or restless that you have been moving around a lot more than usual: not at all 9. Thoughts that you would be better off or of hurting yourself in some way: not at all Total score: 0 Depression Screening Interpretation: Negative Depression Screening Done: Yes [address] - PHQ-9 Billing: Yes Source: Developed by Drs. Mio Cochran, Christelle Frank, Fransisco Spicer and colleagues, with an educational stephanie from [employer]. Thrive Questionnaire Date Thrive assessed: 06/06/25 I am a: Patient What is your living situation today?: I have a steady place to live Within the past 12 months, did the food you bought not last and you didn't have the money to get more?: Never true Within the past 12 months, did you worry whether your food would run out before you got money to buy more?: Never true Do you have trouble paying for medicines?: No Do you have trouble getting transportation to medical appointments?: No Do you have trouble paying your heating and electricity bill?: No Do you have trouble taking care of your child, family member or friend?: No Do you have trouble with day-to-day activities such as bathing, preparing meals, shopping, managing finances, etc.?: No Are you currently unemployed and looking for a job?: No Are you interested in more education?: I choose not to answer this question Please select the resources that you would like help with: None Currently or been in a relationship where the following occur: No concerns reported THRIVE Score: 0 AUDIT C Alcohol Use Questionnaire (AUDIT-C) 1. How often do you have a drink containing alcohol?: Monthly or less 2. How many drinks containing alcohol do you have on a typical day when you are drinking?: 1 or 2 3. How often do you have six or more drinks on one occasion?: Never Total Score: 1 Score Reviewed/Action Taken: Yes JODIE-7 AMB Questionnaire JODIE-7 Date JODIE - 7 assessed: 06/06/25 Feeling nervous, anxious, or on edge: 0 = Not at all Not being able to stop or control worryin = Not at all Worrying too much about different things: 0 = Not at all Trouble relaxin = Not at all Being so restless that it is hard to sit still: 0 = Not at all Becoming easily annoyed or irritable: 0 = Not at all Feeling afraid as if something awful might happen: 0 = Not at all Total JODIE-7 score (0-4 normal; 5-9 mild; 10-14 moderate; 15-21 severe): 0 Source: Developed by Drs. Mio Cochran, Christelle Frank, Fransisco Spicer and colleagues, with an educational stephanie from [employer]. Review of Systems Const Denies chills, Denies fatigue, Denies fever(s) and Denies headache(s) Eyes Reports blurry vision ENT Denies dysphagia, Denies dizziness, Denies otalgia, Denies headache(s), Denies neck pain, Denies odynophagia and Denies sore throat Card Denies chest pain, Denies palpitations and Denies dyspnea Resp Denies cough, Denies dyspnea and Denies wheezing GI Denies abdominal pain, Denies constipation, Denies dysphagia, Denies heartburn, Denies diarrhea, Denies nausea, Denies odynophagia and Denies vomiting Denies difficulty urinating, Denies dysuria, Denies nocturia and Denies urinary frequency Musc Denies back pain and Denies neck pain Skin/Breast Denies rash Neuro Denies dizziness and Denies headache(s) Psych Denies anxiety Endo Denies fatigue and Denies palpitations Aller/Immun Denies wheezing Physical exam (Primary Care) Vital Signs: Last Vital Signs Pulse 60 06/06/25 11:08 BP 140/96 H 06/06/25 11:08 Pulse Ox 98 06/06/25 11:08 Oxygen Delivery Method Room Air 06/06/25 11:08 BMI result Body Mass Index 37.4 Tobacco/Smoking Status: Tobacco use Status Tobacco use date assessed 06/06/25 06/06/25 11:10 Patient Tobacco Use Status Never used Tobacco 06/06/25 11:10 e-Cigarette/Vaping Use Never Used 06/06/25 11:10 PHQ-9: PHQ-9 Score PHQ-9: Total score 0 06/06/25 11:49 Depression Screening Interpretation: Negative Thrive Assessment: Date of Thrive Assessment Date Thrive assessed 06/06/25 06/06/25 11:10 Currently or been in a relationship where the following occur: No concerns reported Const General: no acute distress and alert HENMT Throat: Yes posterior oropharynx normal and Yes tonsils normal (no TP congestion) Neck Neck: Yes supple and No lymphadenopathy Thyroid: Thyroid normal Resp Auscultation: clear to auscultation bilaterally, no rales and no wheezes Cardio Rate: regular rate Rhythm: regular rhythm Heart sounds: no murmurs GI Palpation (GI): Soft to palpation and nontender Auscultation: normal bowel sounds General: Yes no CVA tenderness Back/Spine/Pelvis Back: no CVA tenderness Thoracic/Lumbar Spine: No lumbar spinal tenderness Skin Rashes: no rashes Extrem General: Yes no clubbing, cyanosis or edema Results Reviewed Results Reviewed: Laboratory Tests 12/13/24 06/01/25 06/01/25 11:05 09:25 09:33 WBC 3.5 L Hgb 15.7 Hct 47.3 Plt Count 159 L Sodium 142 Potassium 4.0 Creatinine 1.08 Estimated GFR > 60 Fasting Glucose 97 Calcium 9.2 AST 78 H ALT 161 H Triglycerides 84 Cholesterol 246 H LDL Cholesterol, Calc 175 H HDL Cholesterol 55 25-OH Vitamin D Total 23.9 L TSH 1.39 Ur Specific [place] 1.025 Urine Protein Negative Urine Glucose (UA) Negative Urine Blood Negative Urine Nitrite Negative Ur Leukocyte Esterase Negative Lyme Screen IgG & IgM <0.90 EBV Capsid Ag IgG Ab >750.00 H Hepatitis A IgM Ab Nonreactive Hep Bs Antigen Negative Monoscreen Negative Coding Level of Care Code Est Pt Level 4 (29548) Diagnoses Pure hypercholesterolemia E78.00 Elevated LFTs R79.89 Vitamin D deficiency E55.9 Glaucoma of both eyes, unspecified glaucoma type H40.9 Glaucoma type: unspecified Laterality: bilateral Anxiety F41.9 Obesity (BMI 30-39.9) E66.9 Additional Codes PHQ-9 - [address] - PHQ-9 Billing: Yes ([id number]) Assessment & Plan Assessment & Plan (1) Pure hypercholesterolemia: Code(s): E78.00 - Pure hypercholesterolemia, unspecified Category: Medical Plan: Results of his labs done a few days ago reviewed and discussed with patient - his cholesterol levels have improved slightly from previous and his LDL cholesterol is now at 175 mg/dl Reinforced low cholesterol diet Have again advised patient again that if he cannot get his cholesterol levels down into the recommended range, we will have to consider starting him on pharmacotherapy Will have him recheck his cholesterol levels again in a few months for follow up (2) Elevated LFTs: Code(s): R79.89 - Other specified abnormal findings of blood chemistry Category: Medical Plan: His LFTs have again increased from previous on his recent labs Abdominal US done a few months ago in January 2025 came out with no acute finding or sonographic abnormality to account for his abnormal LFTs His hepatitis profile came back negative but his liver fibrosis panel revealed a liver fibrosis score of 0.48, fibrosis stage at F2 GGTP was also significantly elevated He was sent for additional labs to check for Mononucleosis, EBV, Lyme and CMV - EBV came back positive for IgG but all others were negative He has been referred to GI for further evaluation and management - to follow up with GI as scheduled (3) Vitamin D deficiency: Code(s): E55.9 - Vitamin D deficiency, unspecified Category: Medical Plan: Continue Vitamin D3 2000 units QD (4) Glaucoma: Code(s): H40.9 - Unspecified glaucoma Category: Medical Qualifiers: Glaucoma type: unspecified Laterality: bilateral Qualified Code(s): H40.9 - Unspecified glaucoma Plan: Continue Dorzolamide 2% eye drops 1 drop into each eye BID, Combigan 0.2-0.5% 1 drop into each eye BID, Rocklatan 0.02-0.005% 1 drop into each eye QD, Pilocarpine HCl 1% 1 drop into the right eye QID and Prednisolone acetate 1% 2 drops into the left eye QD Follow up with ophthalmology at the [facility] in [place] as scheduled (5) Anxiety: Code(s): F41.9 - Anxiety disorder, unspecified Category: Medical Plan: Continue Doxepin 25 mg Q HS PRN (6) Obesity (BMI 30-39.9): Code(s): E66.9 - Obesity, unspecified Category: Medical Plan: Reinforced diet/exercise as tolerated/lose weight - he has been able to lose some weight since his last visit Plan To return as scheduled in a couple of weeks for his annual physical examination
--- OUTSIDE RECORDS SUMMARY | 2025-06-06 13:14 | XMS_ITS | Encounter Summary ---
Author Organization [facility] Address [address] [place] [address] Phone Care Team Providers Care Press Maintainer Name Role Phone Geovanny Suazo MD Primary Care Provider [phone] [phone] Geovanny Suazo MD Primary Care Provider +1 -[phone] Roxann Steward MD Primary Care Provider Geovanny Suazo MD Primary Care Provider +1 -[phone] Encounter Details Date Type Department Care Team (Late st Contact Info) Description 12/17/2020 Procedure Pass KYLEE 6TH FL PERIOP DEPT [address] [place] [address] Social History Tobacco Use Types Packs/Day Years [...] AM EST Procedure visit [facility] in [address] [address] 08/29/2025 10:30 AM EST Office Visit [facility] in [address] [address] Mague Ruff MD [address] [place] [address], [address] [place] [address] 09/05/2025 11:15 AM EST Office Visit [facility] in [address] [address] Rosamaria Singletary MD [address] [facility], [address] [place] [address] [email or web address] documented as of this encounter Visit Diagnoses Not on filedocumented in this encounter Care Teams Press Maintainer Relationship Specialty Start Date End Date Geovanny Suazo MD [address] [place] [address] [place] [address] PCP - General Internal Medicine 05/17/20 04/14/22 Geovanny Suazo MD [address] [place] [address] [place] [address] PCP - General Internal Medicine 04/15/22 04/28/22 Roxann Steward MD [address] [place] [address] [email or web address] PCP - General Family Medicine 05/01/22 10/13/22 Geovanny Suazo MD [address] [place] [address] [place] [address] PCP - General Internal Medicine 10/14/22 documented as of this encounter Additional Source Comments The information contained in this document represents components of the legal health record. It is not the complete legal health record.[facility]
--- OUTSIDE RECORDS SUMMARY | 2025-06-06 13:14 | XMS_ITS | Encounter Summary ---
Author Organization [facility] Address [address] [place] [address] Phone Care Team Providers Care Lay Out Former Name Role Phone Geovanny Suazo MD Primary Care Provider [phone] [phone] Geovanny Suazo MD Primary Care Provider [phone] [phone] Roxann Steward MD Primary Care Provider Geovanny Suazo MD Primary Care Provider [phone] [phone] Encounter Details Date Type Department Care Team (Late st Contact Info) Description 11/07/2020 Procedure Pass KYLEE LW PERIOP DEPT [address] [place] [address] Social History Tobacco Use Types Packs/Day Years [...] AM EST Procedure visit [facility] in [address] [address] 08/29/2025 10:30 AM EST Office Visit [facility] in [address] [address] Mague Ruff MD [address] [place] [address], [address] [place] [address] 09/05/2025 11:15 AM EST Office Visit [facility] in [address] [address] Rosamaria Singletary MD [address] [facility], [address] [place] [address] [email or web address] documented as of this encounter Visit Diagnoses Not on filedocumented in this encounter Care Teams Lay Out Former Relationship Specialty Start Date End Date Geovanny Suazo MD [address] [place] [address] [place] [address] PCP - General Internal Medicine 05/17/20 04/14/22 Geovanny Suazo MD [address] [place] [address] [place] [address] PCP - General Internal Medicine 04/15/22 04/28/22 Roxann Steward MD [address] [place] [address] [email or web address] PCP - General Family Medicine 05/01/22 10/13/22 Geovanny Suazo MD [address] [place] [address] [place] [address] PCP - General Internal Medicine 10/14/22 documented as of this encounter Additional Source Comments The information contained in this document represents components of the legal health record. It is not the complete legal health record.[facility]
--- OUTSIDE RECORDS SUMMARY | 2025-06-06 13:14 | XMS_ITS | Encounter Summary ---
Author Organization [facility] Address [address] [facility] [address] [place] [address] Phone Care Team Providers Care Mailing Specialist Name Role Phone Roxann Steward MD Primary Care Provider Geovanny Suazo MD Primary Care Provider [phone] [phone] Encounter Details Date Type Department Care Team (Late st Contact Info) Description 06/06/2022 Procedure Pass KYLEE LW PERIOP DEPT [address] [place] [address] Social History Tobacco Use Types Packs/Day Years [...] AM EST Procedure visit [facility] in [address] [address] 08/29/2025 10:30 AM EST Office Visit [facility] in [address] [address] Mague Ruff MD [address] [place] [address], [facility] [address] [place] [address] 09/05/2025 11:15 AM EST Office Visit [facility] in [address] [address] Rosamaria Singletary MD [address] [facility], [address] [place] [address] [email or web address] documented as of this encounter Visit Diagnoses Not on filedocumented in this encounter Care Teams Mailing Specialist Relationship Specialty Start Date End Date Roxann Steward MD [address] [place] [address] [email or web address] PCP - General Family Medicine 05/01/22 10/13/22 Geovanny Suazo MD [address] [place] [address] [place] [address] PCP - General Internal Medicine 10/14/22 documented as of this encounter Additional Source Comments The information contained in this document represents components of the legal health record. It is not the complete legal health record.[facility]
--- OUTSIDE RECORDS SUMMARY | 2025-06-06 13:14 | XMS_ITS | Clinical Summary ---
Author Organization [facility] Address [address] [place] [address] Phone Care Team Providers Care Client Delivery Manager Name Role Phone Geovanny Suazo MD Primary Care Provider [phone] [phone] Allergies Active Allergy Reactions Criticality Noted Date [...] AM EDT Office Visit [facility] in [address] [address] Rosamaria Singletary MD Chronic iritis (Primary Dx); Primary open angle glaucoma of both eyes, severe stage 04/04/2025 9:15 AM EDT Office Visit [facility] in [address] [address] Mague Ruff MD Primary open angle glaucoma of both eyes, severe stage (Primary Dx) 03/31/2025 Refill [facility] [address] [address] Mague Ruff MD Medication Refill 03/17/2025 Refill [facility] in [address] [address] Shaka Castro MD Medication Refill from Last [...] AM EST Procedure visit [facility] in [address] [address] 08/29/2025 10:30 AM EST Office Visit [facility] in [address] [address] Mague Ruff MD [address] [place] [address], [address] [address] 09/05/2025 11:15 AM EST Office Visit [facility] in [address] [address] Rosamaria Singletary MD [address] [place] [address], [address] [place] [address] [email or web address] Health Maintenance Due Date Last [...] this topic Medical Devices Implanted Type Area Manager Of Information Device Identifier Shelf Expiration Date Model / Serial / Lot Lens Intraocular Sofport Li61ao 21.0d - [id number] Implanted:Qty: 1 on 11/07/2020 by Mague Ruff MD at [facility] Right: Eye BAUSCH 09/23/2022 [id number] / [id number] / Graft Allograft 9mm Tanzgraft Spilt Thickness [place] - [id number] Implanted:Qty: 1 on 11/07/2020 by Mague Ruff MD at [facility] Right: Eye [employer] 08/28/2022 [id number] / [id number] / Implant [place]dt 350mm - [id number] Implanted:Qty: 1 on 11/07/2020 by Mague Ruff MD at [facility] Right: Eye [employer] 02/23/2022 [id number] / [id number] / Lens Intraocular Sofport Li61ao 21.0d - [id number] Implanted:Qty: 1 on 06/06/2022 by Mague Ruff MD at [facility] Left: Eye BAUSCH 12/24/2026 [id number] / [id number] / Insurance [facility] ONE CARE MEDICARE REPLACEMENT JERRY ZELAYA [id number] Advance Directives For more information, please contact: [phone] (9AM - 5PM [facility], Thursday-Thursday) Documents on File Type Date Recorded Patient Intermediate Manager Expl anation Healthcare Proxy 11/19/2020 Care Teams Client Delivery Manager Relationship Specialty Start Date End Date Geovanny Suazo MD [address] [place] [address] [facility] [address] PCP - General Internal Medicine 10/14/22 Additional Source Comments The information contained in this document represents components of the legal health record. It is not the complete legal health record.[facility]
--- OUTSIDE RECORDS SUMMARY | 2025-06-06 13:14 | XMS_ITS | Encounter Summary ---
Author Organization [facility] Address [address] [facility] [address] [place] [address] Phone Care Team Providers Care Pressfitter Name Role Phone Geovanny Suazo MD Primary Care Provider [phone] Geovanny Suazo MD Primary Care Provider [phone] [phone] Roxann Steward MD Primary Care Provider Geovanny Suazo MD Primary Care Provider +1 -[phone] Encounter Details Date Type Department Care Team (Late st Contact Info) Description 11/16/2020 Procedure Pass KYLEE LW PERIOP DEPT [address] [place] [address] Social History Tobacco Use Types Packs/Day Years [...] AM EST Procedure visit [facility] in [address] [address] 08/29/2025 10:30 AM EST Office Visit [facility] in [address] [address] Mague Ruff MD [address] [place] [address], [address] [place] [address] 09/05/2025 11:15 AM EST Office Visit [facility] in [address] [address] Rosamaria Singletary MD [address] [facility], [address] [place] [address] [email or web address] documented as of this encounter Visit Diagnoses Not on filedocumented in this encounter Care Teams Pressfitter Relationship Specialty Start Date End Date Geovanny Suazo MD [address] [place] [address] [place] [address] PCP - General Internal Medicine 05/17/20 04/14/22 Geovanny Suazo MD [address] [place] [address] [place] [address] PCP - General Internal Medicine 04/15/22 04/28/22 Roxann Steward MD [address] [place] [address] [email or web address] PCP - General Family Medicine 05/01/22 10/13/22 Geovanny Suazo MD [address] [place] [address] [place] [address] PCP - General Internal Medicine 10/14/22 documented as of this encounter Additional Source Comments The information contained in this document represents components of the legal health record. It is not the complete legal health record.[facility]
--- OUTSIDE RECORDS SUMMARY | 2025-06-06 13:14 | XMS_ITS ---
Author Name Pamela WILLIAN, [place]. Vicki Christina Address [address] [place] [address] Phone [phone] [facility] Care Team Providers Care Customer Marketing Manager Name Role Phone Vicki Santiago Unavailable [phone] Rosamaria Singletary Unavailable [phone] AHSYLVIE, ASEEF Unavailable [phone] Reason for Referral Not Available Allergies, adverse [...] 95 for video, modifier 93 for phone [facility] 04/13/2023 Primary open-angle glaucoma, bilateral, severe stage New patient, 30-44min 1 stable chronic or 2 minor; add modifier 95 for video, modifier 93 for phone [facility] 04/13/2023 New patient, 30-44min 1 stable chronic or 2 minor; add modifier 95 for video, modifier 93 for phone [facility] 04/13/2023 New patient, 30-44min 1 stable chronic or 2 minor; add modifier 95 for video, modifier 93 for phone [facility] 04/13/2023 New patient, 30-44min 1 stable chronic or 2 minor; add modifier 95 for video, modifier 93 for phone [facility] 04/13/2023 New patient, 30-44min 1 stable chronic or 2 minor; add modifier 95 for video, modifier 93 for phone [facility] 04/13/2023 New patient, 30-44min 1 stable chronic or 2 minor; add modifier 95 for video, modifier 93 for phone [facility] 04/13/2023 Vital Signs Date of Collection Vitals 2023-04-13 08:25:32 Height - 175.26 cmWe ight - 102.06 kgBody Mass Index (BMI) - 33.23 kg/m2Pain Scale - 0.0 {score} Social History Social History Social History Observation Description Effec tive Time Current Smoking Status Never smoker 2025-05-27 1 Sex Male History of Procedures Procedures Service Procedure code Service date Servicing provider Phone# New patient, 30-44min 1 stable chronic or 2 minor; add modifier 95 for video, modifier 93 for phone [id number] 2023-04-13 No Data Available No Data Available [...] had a detailed discussion with patient/caregiver about [facility] 16/02 services, their diagnosis, and medications. Patient/caregiver verbalized understanding by teach-back method. All available medications were reconciliated, counseled patient/caregiver on treatment plan, compliance, and f/u care coordination with their established PCP and specialists. Health Concerns Date Concern 2023-04-13 Patient seen using a udio and video. Patient agreed to visit via telehealth with . Introductory visit with [facility] to establish care. Today, patient has chief complaint of: establishing care.Reviewed Allergies, Medications, Active Medical conditions, past medical/surgical history, Social history. 2023-04-13 Most recent hospital stay(s) or ER visit(s) and precipitating factors: denies any visits in the last few months
== END 2025-06-06 11:58 | disposition home or self-care (01) ==
LOC: HO.HMCH 11:04
PROVIDERS: PCP Internal Medicine; Visit Provider Internal Medicine
DX: E78.00 Pure hypercholesterolemia, unspecified (principal); H40.9 Unspecified glaucoma; E66.9 Obesity, unspecified; Z68.37 Body mass index [BMI] 37.0-37.9, adult; R79.89 Other specified abnormal findings of blood chemistry; E55.9 Vitamin D deficiency, unspecified; F41.9 Anxiety disorder, unspecified

== ENCOUNTER → 2025-06-06 11:03 | Outpatient (BNVA) | payer OTHER, SELFPAY | PROVIDERS: PCP Internal Medicine; Visit Provider Internal Medicine | DX: E78.00 Pure hypercholesterolemia, unspecified (principal); R79.89 Other specified abnormal findings of blood chemistry; E55.9 Vitamin D deficiency, unspecified; H40.9 Unspecified glaucoma; F41.9 Anxiety disorder, unspecified; E66.9 Obesity, unspecified; Z13.31 Encounter for screening for depression | CPT/HCPCS: 96127; 99212 ==

== ENCOUNTER 2025-06-19 10:23 | Outpatient (AMB) | payer OTHER, SELFPAY ==
[2025-06-19 10:26] VITALS: BP 130/86; PULSE 65; O2SAT 97; BMI 36.9
--- NOTE | 2025-06-19 10:26 | A.OFFPC_ITS ---
Vital Signs 06/19/25 10:26 Height 5 ft 10 in Weight 257 lb 6 oz BMI 36.9 BP 130/86 Blood Pressure Location Lt brachial Position Sitting Pulse 65 Pulse Source Pulse Oximeter Pulse Oximetry (%) 97 Oxygen Delivery Method Room Air Intake Visit Reasons: Annual Exam Court Security Officer Required: No Accompanied by: Self / Same As Patient Allergies No Known Allergies Allergy (Verified 06/19/25 11:20) Medication List - Last Reconciled 06/19/25 by Geovanny Suazo MD brimonidine-timolol 0.2-0.5 % (Combigan) 1 drp ophthalmic (eye) BID cholecalciferol (vitamin D3) 50 mcg PO DAILY 90 days dorzolamide 2% 1 drp ophthalmic (eye) BID doxepin 25 mg PO BEDTIME netarsudil-latanoprost 0.02-0.005 % (Rocklatan) 1 drp ophthalmic (eye) DAILY pilocarpine HCl 1% 1 drp ophthalmic (eye) QID prednisolone acetate 1% 2 drps ophthalmic (eye) .QD Tobacco use date assessed: 06/19/25 Dental Screening Dental Screen Date: 06/19/25 Did you have a dental visit in the last 12 months?: Yes Did you have a dental problem in the last 6 months where you did not have access to dental care?: No Was dental information given to patient?: Patient has dentist HPI Annual Exam HPI Details Patient comes in today for his annual physical examination States that he feels okay He denies any headaches or dizziness Denies any chest pains, no SOB No nausea/vomiting, no abdominal pain No change in bowel habits noted He denies any acute urinary symptoms He had his follow-up labs done last month and his results were discussed with him at his visit here last month He had a normal colonoscopy done in December 2020 and his next screening colonoscopy will be in 10 years (2030) [facility] Medical History Vitamin D deficiency Pure hypercholesterolemia Anxiety Colon cancer screening Elevated LFTs Obesity (BMI 30-39.9) Elevated blood pressure reading Surgical History Hx of colonoscopy (~01/22/21) Hx of lumbar discectomy (~2000) Status post glaucoma surgery (~05/02/20) History of trabeculectomy (~08/24/19) Family History Mother Hypertension Social History Household Members Other:: Housing: Apartment Alcohol intake: current Alcohol intake frequency: holidays/special occasions only Patient Tobacco Use Status: Never used Tobacco e-Cigarette/Vaping Use: Never Used Second Hand Smoke Exposure: Yes service: No Current occupational status: retired and disabled Cognitive needs: No Hearing needs: No Vision needs: No Questionnaire PHQ-9 Over the last 2 weeks, how often have you been bothered by any of the following problems? 1. Little interest or pleasure in doing things: not at all 2. Feeling down, depressed, or hopeless: not at all 3. Trouble falling or staying asleep, or sleeping too much: not at all 4. Feeling tired or having little energy: not at all 5. Poor appetite or overeating: not at all 6. Feeling bad about yourself - or that you are a failure or have let yourself or your family down: not at all 7. Trouble concentrating on things, such as reading the newspaper or watching television: not at all 8. Moving or speaking so slowly that other people could have noticed. Or the opposite - being so fidgety or restless that you have been moving around a lot more than usual: not at all 9. Thoughts that you would be better off or of hurting yourself in some way: not at all Total score: 0 Depression Screening Interpretation: Negative Depression Screening Done: Yes 96385 - PHQ-9 Billing: Yes Source: Developed by Drs. Mio Cochran, Christelle Frank, Fransisco Spicer and colleagues, with an educational stephanie from [employer]. Thrive Questionnaire Date Thrive assessed: 06/19/25 I am a: Patient What is your living situation today?: I have a steady place to live Within the past 12 months, did the food you bought not last and you didn't have the money to get more?: Never true Within the past 12 months, did you worry whether your food would run out before you got money to buy more?: Never true Do you have trouble paying for medicines?: No Do you have trouble getting transportation to medical appointments?: No Do you have trouble paying your heating and electricity bill?: No Do you have trouble taking care of your child, family member or friend?: No Do you have trouble with day-to-day activities such as bathing, preparing meals, shopping, managing finances, etc.?: No Are you currently unemployed and looking for a job?: No Are you interested in more education?: I choose not to answer this question Please select the resources that you would like help with: None Currently or been in a relationship where the following occur: No concerns reported THRIVE Score: 0 AUDIT C Alcohol Use Questionnaire (AUDIT-C) 1. How often do you have a drink containing alcohol?: Monthly or less 2. How many drinks containing alcohol do you have on a typical day when you are drinking?: 1 or 2 3. How often do you have six or more drinks on one occasion?: Never Total Score: 1 Score Reviewed/Action Taken: Yes JODIE-7 AMB Questionnaire JODIE-7 Date JODIE - 7 assessed: 06/19/25 Feeling nervous, anxious, or on edge: 0 = Not at all Not being able to stop or control worryin = Not at all Worrying too much about different things: 0 = Not at all Trouble relaxin = Not at all Being so restless that it is hard to sit still: 0 = Not at all Becoming easily annoyed or irritable: 0 = Not at all Feeling afraid as if something awful might happen: 0 = Not at all Total JODIE-7 score (0-4 normal; 5-9 mild; 10-14 moderate; 15-21 severe): 0 Source: Developed by Drs. Mio Cochran, Christelle Frank, Fransisco Spicer and colleagues, with an educational stephanie from [employer]. Review of Systems Const Denies chills, Denies difficulty sleeping, Denies fatigue, Denies fever(s), Denies headache(s), Denies malaise and Denies weakness Eyes Reports blurry vision (in both eyes), Denies change in vision, Denies irritation and Denies itchy eyes ENT Denies dysphagia, Denies dizziness, Denies otalgia, Denies headache(s), Denies nasal congestion, Denies neck pain, Denies odynophagia and Denies sore throat Card Denies rapid heart rate, Denies irregular heart rhythm, Denies palpitations and Denies dyspnea Resp Denies chest congestion, Denies cough, Denies dyspnea and Denies wheezing GI Denies abdominal pain, Denies bloating, Denies constipation, Denies dysphagia, Denies heartburn, Denies diarrhea, Denies nausea, Denies odynophagia and Denies vomiting Denies hematuria, Denies difficulty urinating, Denies dysuria, Denies urinary frequency and Denies urinary urgency Musc Denies back pain, Denies arthralgias, Denies joint swelling, Denies muscle weakness and Denies neck pain Skin/Breast Denies change in pigmentation, Denies lesions, Denies rash and Denies unusual bruising Neuro Denies dizziness, Denies headache(s), Denies paresthesias and Denies weakness Endo Denies fatigue and Denies palpitations Aller/Immun Denies itchy eyes and Denies wheezing Physical exam (Primary Care) Vital Signs: Last Vital Signs Pulse 65 06/19/25 10:26 BP 130/86 06/19/25 10:26 Pulse Ox 97 06/19/25 10:26 Oxygen Delivery Method Room Air 06/19/25 10:26 BMI result Body Mass Index 36.9 Tobacco/Smoking Status: Tobacco use Status Tobacco use date assessed 06/19/25 06/19/25 10:43 Patient Tobacco Use Status Never used Tobacco 06/19/25 10:43 e-Cigarette/Vaping Use Never Used 06/19/25 10:43 PHQ-9: PHQ-9 Score PHQ-9: Total score 0 06/19/25 10:43 Depression Screening Interpretation: Negative Thrive Assessment: Date of Thrive Assessment Date Thrive assessed 06/19/25 06/19/25 10:43 Currently or been in a relationship where the following occur: No concerns reported Const General: no acute distress, alert and awake Orientation/consciousness: patient oriented x3 HENMT Head: Yes normocephalic and Yes atraumatic Ears: external ears normal, TM's normal bilaterally and EAC's normal General nose exam: No nasal discharge present Face and sinus: Yes normal facial exam and Yes sinuses nontender Teeth and gingiva: dentition normal Throat: Yes posterior oropharynx normal and Yes tonsils normal (no TP congestion) Eyes Eyelids: Yes eyelids normal Conjunctivae: conjunctivae normal Pupils: Equal, round and reactive pupils present EOM: EOMs intact bilaterally Neck Neck: Yes supple and No lymphadenopathy Thyroid: Thyroid normal Resp Auscultation: clear to auscultation bilaterally, no rales and no wheezes Cardio Rate: regular rate Rhythm: regular rhythm Heart sounds: no murmurs GI Palpation (GI): Soft to palpation, nontender and No hepatosplenomegaly present Auscultation: normal bowel sounds General: Yes no CVA tenderness Back/Spine/Pelvis Back: no CVA tenderness Thoracic/Lumbar Spine: thoracic and lumbar spine normal to inspection Skin Lesions: no lesions Rashes: no rashes Neuro General: patient oriented x3, moves all extremities, no focal motor deficits and CN's II-XI intact bilaterally Cranial nerves: Yes Equal, round and reactive pupils present Cognition (Neuro): normal cognition Gait exam (Neuro): Normal gait present Extrem General: Yes no clubbing, cyanosis or edema Results Reviewed Results Reviewed: Laboratory Tests 12/13/24 06/01/25 06/01/25 11:05 09:25 09:33 WBC 3.5 L Hgb 15.7 Hct 47.3 Plt Count 159 L Sodium 142 Potassium 4.0 Creatinine 1.08 Estimated GFR > 60 Fasting Glucose 97 Calcium 9.2 AST 78 H ALT 161 H Triglycerides 84 Cholesterol 246 H LDL Cholesterol, Calc 175 H HDL Cholesterol 55 25-OH Vitamin D Total 23.9 L TSH 1.39 Ur Specific Arnold 1.025 Urine Protein Negative Urine Glucose (UA) Negative Urine Blood Negative Urine Nitrite Negative Ur Leukocyte Esterase Negative Lyme Screen IgG & IgM <0.90 EBV Capsid Ag IgG Ab >750.00 H Hepatitis A IgM Ab Nonreactive Hep Bs Antigen Negative Monoscreen Negative Coding Level of Care Code Est Pt Prev Care 40-64y(98675) Diagnoses Annual physical exam Z00.00 Pure hypercholesterolemia E78.00 Elevated LFTs R79.89 Vitamin D deficiency E55.9 Glaucoma of both eyes, unspecified glaucoma type H40.9 Glaucoma type: unspecified Laterality: bilateral Anxiety F41.9 Obesity (BMI 30-39.9) E66.9 Additional Codes PHQ-9 - 84838 - PHQ-9 Billing: Yes ([id number]) Assessment & Plan Assessment & Plan (1) Annual physical exam: Code(s): Z00.00 - Encounter for general adult medical examination without abnormal findings Category: Medical Plan: Results of his labs done last month again reviewed and discussed with patient He had a normal colonoscopy done in December 2020 and his next screening colonoscopy will be in 10 years (2030) (2) Pure hypercholesterolemia: Code(s): E78.00 - Pure hypercholesterolemia, unspecified Category: Medical Plan: His cholesterol levels have improved slightly from previous on his labs done last month and his LDL cholesterol is now at 175 mg/dl Reinforced low cholesterol diet Have again advised patient again that if he cannot get his cholesterol levels down into the recommended range, we will have to consider starting him on pharmacotherapy - we are trying to avoid doing that now due to his elevated LFTs Will have him recheck his cholesterol levels again in a few months for follow up (3) Elevated LFTs: Code(s): R79.89 - Other specified abnormal findings of blood chemistry Category: Medical Plan: His LFTs have again increased from previous on his recent labs Abdominal US done a few months ago in January 2025 came out with no acute finding or sonographic abnormality to account for his abnormal LFTs His hepatitis profile came back negative but his liver fibrosis panel revealed a liver fibrosis score of 0.48, fibrosis stage at F2 GGTP was also significantly elevated He was sent for additional labs to check for Mononucleosis, EBV, Lyme and CMV - EBV came back positive for IgG but all others were negative He has been referred to GI for further evaluation and management and he is now scheduled to be seen by Dr. White in August 2025 (4) Vitamin D deficiency: Code(s): E55.9 - Vitamin D deficiency, unspecified Category: Medical Plan: Continue Vitamin D3 2000 units QD (5) Glaucoma: Code(s): H40.9 - Unspecified glaucoma Category: Medical Qualifiers: Glaucoma type: unspecified Laterality: bilateral Qualified Code(s): H40.9 - Unspecified glaucoma Plan: Continue Dorzolamide 2% eye drops 1 drop into each eye BID, Combigan 0.2-0.5% 1 drop into each eye BID, Rocklatan 0.02-0.005% 1 drop into each eye QD, Pilocarpine HCl 1% 1 drop into the right eye QID and Prednisolone acetate 1% 2 drops into the left eye QD Follow up with ophthalmology at the [facility] in [place] as scheduled (6) Anxiety: Code(s): F41.9 - Anxiety disorder, unspecified Category: Medical Plan: Continue Doxepin 25 mg Q HS PRN (7) Obesity (BMI 30-39.9): Code(s): E66.9 - Obesity, unspecified Category: Medical Plan: Reinforced diet/exercise as tolerated/lose weight Plan Follow up in 4 months Orders: Orders Complete Blood Count Auto Diff 4 Months D64.9 - Anemia, unspecified Lipid Panel 4 Months E78.00 - Pure hypercholesterolemia, unspecified UA CC w/rflx Micro + Cult 4 Months R30.0 - Dysuria Vitamin D 25-OH Total 4 Months E55.9 - Vitamin D deficiency, unspecified Comprehensive [place]. Panel Fast 4 Months E78.00 - Pure hypercholesterolemia, unspecified TSH reflex Free T4 4 Months E78.00 - Pure hypercholesterolemia, unspecified
--- OUTSIDE RECORDS SUMMARY | 2025-06-19 12:49 | XMS_ITS | Encounter Summary ---
Author Organization [facility] Address [address] [place] [address] Phone Care Team Providers Care Clerical Transcriber Name Role Phone Geovanny Suazo MD Primary Care Provider [phone] Geovanny Suazo MD Primary Care Provider [phone] Roxann Steward MD Primary Care Provider Geovanny Suazo MD Primary Care Provider [phone] Encounter Details Date Type Department Care Team (Late st Contact Info) Description 12/17/2020 Procedure Pass [facility] 6TH FL PERIOP DEPT [address] [place] [id number] Social History Tobacco Use Types Packs/Day Years [...] AM EST Procedure visit [facility] in [address] [address] 08/29/2025 10:30 AM EST Office Visit [facility] in [address] [address] Mague Ruff MD [address] [place] [address], [address] [place] [address] 09/05/2025 11:15 AM EST Office Visit [facility] in [address] [address] Rosamaria Singletary MD [address], [address] [place] [address] [email or web address] documented as of this encounter Visit Diagnoses Not on filedocumented in this encounter Care Teams Clerical Transcriber Relationship Specialty Start Date End Date Geovanny Suazo MD [address] [place] [address] [place] [address] PCP - General Internal Medicine 05/17/20 04/14/22 Geovanny Suazo MD [address] [place] [address] [place] [address] PCP - General Internal Medicine 04/15/22 04/28/22 Roxann Steward MD [address] [place] [address] [email or web address] PCP - General Family Medicine 05/01/22 10/13/22 Geovanny Suazo MD [address] [place] [address] [place] [address] PCP - General Internal Medicine 10/14/22 documented as of this encounter Additional Source Comments The information contained in this document represents components of the legal health record. It is not the complete legal health record.[facility]
--- OUTSIDE RECORDS SUMMARY | 2025-06-19 12:49 | XMS_ITS | Encounter Summary ---
Author Organization [facility] Address [address] [place] [address] Phone Care Team Providers Care Founder President And Ceo Name Role Phone Geovanny Suazo MD Primary Care Provider [phone] Geovanny Suazo MD Primary Care Provider [phone] [phone] Roxann Steward MD Primary Care Provider Geovanny Suazo MD Primary Care Provider [phone] [phone] Encounter Details Date Type Department Care Team (Late st Contact Info) Description 11/16/2020 Procedure Pass [facility] LW PERIOP DEPT [address] [place] [address] Social History Tobacco Use Types Packs/Day Years [...] AM EST Procedure visit [facility] in [address] [address] 08/29/2025 10:30 AM EST Office Visit [facility] in [address] [address] Mague Ruff MD [address] [place] [address], [address] [place] [address] 09/05/2025 11:15 AM EST Office Visit [facility] in [address] [address] Rosamaria Singletary MD [address] [facility] [address], [address] [place] [address] [email or web address] documented as of this encounter Visit Diagnoses Not on filedocumented in this encounter Care Teams Founder President And Ceo Relationship Specialty Start Date End Date Geovanny Suazo MD [address] [place] [address] [place] [address] PCP - General Internal Medicine 05/17/20 04/14/22 Geovanny Suazo MD [address] [place] [address] [place] [address] PCP - General Internal Medicine 04/15/22 04/28/22 Roxann Steward MD [address] [place] [address] [email or web address] PCP - General Family Medicine 05/01/22 10/13/22 Geovanny Suazo MD [address] [place] [address] [place] [address] PCP - General Internal Medicine 10/14/22 documented as of this encounter Additional Source Comments The information contained in this document represents components of the legal health record. It is not the complete legal health record.[facility]
--- OUTSIDE RECORDS SUMMARY | 2025-06-19 12:50 | XMS_ITS | Encounter Summary ---
Author Organization [facility] Address [address] [place] [address] Phone Care Team Providers Care Landscape Technician Name Role Phone Geovanny Suazo MD Primary Care Provider [phone] Geovanny Suazo MD Primary Care Provider [phone] [phone] Roxann Steward MD Primary Care Provider Geovanny Suazo MD Primary Care Provider [phone] [phone] Encounter Details Date Type Department Care Team (Late st Contact Info) Description 11/07/2020 Procedure Pass [facility] LW PERIOP DEPT [address] [place] [address] Social History Tobacco Use Types Packs/Day Years [...] AM EST Procedure visit [facility] in [address] [address] 08/29/2025 10:30 AM EST Office Visit [facility] in [address] [address] Mague Ruff MD [address] [place] [address], [address] [place] [address] 09/05/2025 11:15 AM EST Office Visit [facility] in [address] [address] Rosamaria Singletary MD [address], [address] [place] [address] [email or web address] documented as of this encounter Visit Diagnoses Not on filedocumented in this encounter Care Teams Landscape Technician Relationship Specialty Start Date End Date Geovanny Suazo MD [address] [place] [address] [place] [address] PCP - General Internal Medicine 05/17/20 04/14/22 Geovanny Suazo MD [address] [place] [address] [place] [address] PCP - General Internal Medicine 04/15/22 04/28/22 Roxann Steward MD [address] [place] [address] [email or web address] PCP - General Family Medicine 05/01/22 10/13/22 Geovanny Suazo MD [address] [place] [address] [place] [address] PCP - General Internal Medicine 10/14/22 documented as of this encounter Additional Source Comments The information contained in this document represents components of the legal health record. It is not the complete legal health record.[facility]
--- OUTSIDE RECORDS SUMMARY | 2025-06-19 12:50 | XMS_ITS | Clinical Summary ---
Author Organization [facility] Address [address] [place] [address] Phone Care Team Providers Care Keno Writer Name Role Phone Geovanny Suazo MD Primary Care Provider [phone] [phone] Allergies Active Allergy Reactions Criticality Noted Date [...] AM EDT Office Visit [facility] in [address] [address] Rosamaria Singletary MD Chronic iritis (Primary Dx); Primary open angle glaucoma of both eyes, severe stage 04/04/2025 9:15 AM EDT Office Visit [facility] in [address] [address] Mague Ruff MD Primary open angle glaucoma of both eyes, severe stage (Primary Dx) 03/31/2025 Refill [facility] in [address] [address] Mague Ruff MD Medication Refill from Last 3 Months [...] AM EST Procedure visit [facility] in [address] [address] 08/29/2025 10:30 AM EST Office Visit [facility] in [address] [address] Mague Ruff MD [address] [place] [address], [address] [place] [address] 09/05/2025 11:15 AM EST Office Visit [facility] in [address] [address] Rosamaria Singletary MD [address] [place] [address], [address] [place] [address] [email or web address] Health Maintenance Due Date Last Done [...] 2020 ZOSTER VACCINES (1 of 2) 2020 INFLUENZA VACCINE (#1) 2025 COVID-19 VACCINE (2 [...] this topic Medical Devices Implanted Type Area Rug Renovator Device Identifier Shelf Expiration Date Model / Serial / Lot Lens Intraocular Sofport Li61ao 21.0d - [id number] Implanted:Qty: 1 on 11/07/2020 by Mague Ruff MD at [facility] Right: Eye BAUSCH 09/23/2022 [id number] / [id number] / Graft Allograft 9mm Tanzgraft Spilt Thickness [place] - [id number] Implanted:Qty: 1 on 11/07/2020 by Mague Ruff MD at [facility] Right: Eye [employer] 08/28/2022 [id number] / [id number] / Implant Baerveldt 350mm - [id number] Implanted:Qty: 1 on 11/07/2020 by Mague Ruff MD at [facility] Right: Eye A M [employer] SALES 02/23/2022 [id number] / [id number] / Lens Intraocular Sofport Li61ao 21.0d - [id number] Implanted:Qty: 1 on 06/06/2022 by Mague Ruff MD at [facility] Left: Eye BAUSCH 12/24/2026 [id number] / [id number] / Insurance [facility] ONE CARE MEDICARE REPLACEMENT Advance Directives For more information, please contact: [phone] (9AM - 5PM [facility], Thursday-Thursday) Documents on File Type Date Recorded Patient Wire Coiler Expl anation Healthcare Proxy 11/19/2020 Care Teams Keno Writer Relationship Specialty Start Date End Date Geovanny Suazo MD [address] [place] [address] [place] [address] PCP - General Internal Medicine 10/14/22 Additional Source Comments The information contained in this document represents components of the legal health record. It is not the complete legal health record.[facility]
--- OUTSIDE RECORDS SUMMARY | 2025-06-19 12:50 | XMS_ITS | Encounter Summary ---
Author Organization [facility] Address [address] [facility] [address] [place] [address] Phone Care Team Providers Care Principal Quality Engineer Name Role Phone Roxann Steward MD Primary Care Provider Geovanny Suazo MD Primary Care Provider [phone] Encounter Details Date Type Department Care Team (Late st Contact Info) Description 06/06/2022 Procedure Pass [facility] [address] [place] [address] Social History Tobacco Use Types Packs/Day Years [...] AM EST Procedure visit [facility] in [address] [address] 08/29/2025 10:30 AM EST Office Visit [facility] [address] [address] Mague Ruff MD [address] [place] [address], [facility] [address] [place] [address] 09/05/2025 11:15 AM EST Office Visit [facility] in [address] [address] Rosamaria Singletary MD [address] [facility], [address] [place] [address] [email or web address] documented as of this encounter Visit Diagnoses Not on filedocumented in this encounter Care Teams Principal Quality Engineer Relationship Specialty Start Date End Date Roxann Steward MD [address] [place] [id number] [email or web address] PCP - General Family Medicine 05/01/22 10/13/22 Geovanny Suazo MD [address] [place] [address] [place] [address] PCP - General Internal Medicine 10/14/22 documented as of this encounter Additional Source Comments The information contained in this document represents components of the legal health record. It is not the complete legal health record.[facility]
== END 2025-06-19 11:42 | disposition home or self-care (01) ==
LOC: HO.HMCH 10:23
PROVIDERS: PCP Internal Medicine; Visit Provider Internal Medicine
DX: Z00.00 Encounter for general adult medical examination without abnormal findings (principal); E78.00 Pure hypercholesterolemia, unspecified; R79.89 Other specified abnormal findings of blood chemistry; E55.9 Vitamin D deficiency, unspecified; H40.9 Unspecified glaucoma; F41.9 Anxiety disorder, unspecified; E66.9 Obesity, unspecified; Z68.36 Body mass index [BMI] 36.0-36.9, adult

== ENCOUNTER → 2025-06-19 10:23 | Outpatient (BNVA) | payer OTHER, SELFPAY | PROVIDERS: PCP Internal Medicine; Visit Provider Internal Medicine | DX: Z00.00 Encounter for general adult medical examination without abnormal findings (principal); E78.00 Pure hypercholesterolemia, unspecified; R79.89 Other specified abnormal findings of blood chemistry; E55.9 Vitamin D deficiency, unspecified; H40.9 Unspecified glaucoma; F41.9 Anxiety disorder, unspecified; E66.9 Obesity, unspecified; Z68.36 Body mass index [BMI] 36.0-36.9, adult; Z13.31 Encounter for screening for depression | CPT/HCPCS: 96127; 99396 ==